=== PATIENT | female | born 1940 | race Caucasian/White ===

== ENCOUNTER 2017-04-02 15:18 | Emergency (ER) | payer OTHER, MEDICAID ==
--- NOTE | 2017-04-02 15:41 | DR.GENAD ---
HPI - PCP Primary Care Physician: NLP - Complaint/Symptoms Chief Complaint Doctors Comments: Hurting in rt. shoulder and nose bleed. She tripped on so,mething while taking out trash at home. She denies LOC. - Nurses notes reviewed Nurses Notes Review: Yes - Source History Provided: Patient - Mode of Arrival Mode of Arrival: EMS - Timing Came on: Suddenly PMH - PMH Past Medical History: Angina, Anxiety, CHF, COPD, Coronary Artery Disease, Diabetes, Dyslipidemia, GERD, Hypertension, [place] Past Surgical History: Yes Surgical History: , Carotid Endarterectomy, Cholecystectomy, Hysterectomy, Neurosurgery, Ortho Surgery - Family History Family Medical History: Cancer, Heart Failure - Social History Do you use any recreational Drugs:: No ROS - Review of Systems Constitutional: No Symptoms Reported Eyes: No Symptoms Reported ENTM: Epistaxis Respiratoy: No Symptoms Reported Cardiovascular: No Symptoms Reported Gastrointestinal/Abdominal: No Symptoms Reported Genitourinary: No Symptoms Reported Neurological: No Symptoms Reported Musculoskeletal: Right, Shoulder, Knee Integumentary: No Symptoms Reported Hematologic/Lymphatic: No Symptoms Reported Endocrine: No Symptoms Reported Psychiatric: No Symptoms Reported PE - Vital Signs Vitals: Temperature 98.1 F Pulse Rate 100 Respiratory Rate 24 Blood Pressure [Left Arm] 147/68 Blood Pressure [Right Arm] 130/59 Blood Pressure 150/67 O2 Sat by Pulse Oximetry 98 - General Limitations: No Limitations General Appearance: Alert, In Distress (pain related) - Head Head Exam: Other (nasal bleed) - Eyes Eye exam: Normal Appearance - ENT External Ear Exam: Normal External Inspection TM/Canal Exam: Bilateral Normal Nose Exam: Other (B/l epistaxis) Mouth Exam: Normal Inspection Throat Exam: Normal Inspection - Neck Neck Exam: Normal Inspection - Chest Chest Inspection: Normal Inspection - Respiratory Respiratory Exam: Normal Lung Sounds Bilat - Cardiovascular Cardiovascular Exam: Regular Rate, Normal Rhythm, +S1, +S2 - Abdominal Exam Abdominal Exam: Normal Inspection, Normal Bowel Sounds, Soft - Extremities Extremities Exam: Normal Inspection, Tenderness (right shoulder) - Back Back Exam: Normal Inspection - Neurologic Neurological Exam: Alert, Oriented X3 - Psychiatric Psychiatric Exam: Normal Affect, Normal Mood - Skin Skin Exam: Warm, Dry, Intact, Normal Color ROR - Labs Reviewed Result Diagrams: 04/02/17 16:15 Laboratory: WBC 17.6 X10^3/uL (3.6-10.0) H 04/02/17 16:15 RBC 4.00 X10^6/uL (3.5-5.4) 04/02/17 16:15 Hgb 12.6 g/dL (12.0-16.0) 04/02/17 16:15 Hct 37.1 % (36.0-47.0) 04/02/17 16:15 MCV 92.8 fL (80.0-100.0) 04/02/17 16:15 MCH 31.5 pg (27.0-34.0) 04/02/17 16:15 MCHC 33.9 g/dL (33.0-35.0) 04/02/17 16:15 RDW 12.8 % (11.6-16.5) 04/02/17 16:15 Plt Count 334 X10^3/uL (150.0-450.0) 04/02/17 16:15 MPV 8.3 fL (7.4-11.0) 04/02/17 16:15 Neut % 75.4 % (42.0-75.0) H 04/02/17 16:15 Lymph % 17.3 % (21.0-51.0) L 04/02/17 16:15 Emmet % 5.2 % (0.0-13.0) 04/02/17 16:15 Eos % 1.4 % (0.9-2.9) 04/02/17 16:15 Baso % 0.7 % (0.2-1.0) 04/02/17 16:15 Neut # 13.3 x10^3/uL (2.2-4.8) H 04/02/17 16:15 Lymph # 3.0 X10^3/uL (1.3-2.9) H 04/02/17 16:15 Emmet # 0.9 x10^3/uL (0.3-0.8) H 04/02/17 16:15 Eos # 0.3 x10^3/uL (0.0-0.2) H 04/02/17 16:15 Baso # 0.1 X10^3/uL (0.0-0.1) 04/02/17 16:15 Absolute Nucleated RBC 0.0 /100WBC 04/02/17 16:15 - XRAY XRAY Interpreted by: Radiologist (CT Brain: chronic atrophy, partially visualised nasal bone fracture. Rt. shoulder: closed, impacted multicomponent fx. Rt. knee: right patella fx. ) - Diagnosis Discharge Problem: Syncope, Humeral head fracture, Nasal bone fracture, Patella fracture, Scalp hematoma - Discharge Plan Disposition: 01 HOME, SELF-CARE Condition: Stable - Follow ups/Referrals Follow ups/Referrals: [facility],None [Primary Care Provider] - 3 days KAMILAH FARMER [STAFF PHYSICIAN] - 3 days - Instructions
[2017-04-02 15:44] VITALS: BMI 32.4
[2017-04-02] MEDS ORDERED: TORADOL 30 MG VIAL IM ONE (15:45)
[2017-04-02] MEDS ORDERED: TORADOL 30 MG VIAL ONE (15:46)
[2017-04-02 16:25] LABS: BASOPHILS # (AUTO) 0.1 X10^3/uL (0.0-0.1); BASOPHILS % (AUTO) 0.7 % (0.2-1.0); EOSINOPHILS # (AUTO) 0.3 x10^3/uL (0.0-0.2); EOSINOPHILS % (AUTO) 1.4 % (0.9-2.9); HEMATOCRIT 37.1 % (36.0-47.0); HEMOGLOBIN 12.6 g/dL (12.0-16.0); LYMPHOCYTES % (AUTO) 17.3 % (21.0-51.0); MEAN CORPUSCULAR HEMOGLOBIN 31.5 pg (27.0-34.0); MEAN CORPUSCULAR HGB CONC 33.9 g/dL (33.0-35.0); MEAN CORPUSCULAR VOLUME 92.8 fL (80.0-100.0); MEAN PLATELET VOLUME 8.3 fL (7.4-11.0); MONOCYTES # (AUTO) 0.9 x10^3/uL (0.3-0.8); MONOCYTES % (AUTO) 5.2 % (0.0-13.0); NEUTROPHILS # (AUTO) 13.3 x10^3/uL (2.2-4.8); NEUTROPHILS % (AUTO) 75.4 % (42.0-75.0); PLATELET COUNT 334 X10^3/uL (150.0-450.0); RED CELL DISTRIBUTION WIDTH 12.8 % (11.6-16.5); WHITE BLOOD COUNT 17.6 X10^3/uL (3.6-10.0)
[2017-04-02] MEDS ORDERED: DILAUDID INJ ONE ×2 (16:28→19:41)
[2017-04-02] MEDS ORDERED: DILAUDID INJ IVP ONE ×2 (16:35→19:40)
--- NOTE | 2017-04-02 16:35 | CT ---
HISTORY: Fall, facial injury Study: CT brain without contrast Comparison: 04/26/2015 Technique: Multiple axial images of the brain were obtained from the skull base to the vertex without administra tion of IV contrast. Dose reduction techniques including Automated Exposure Control (AEC) and adjust ment of mA and kV were utilized. Findings: There is chronic advanced atrophy and nonspecific white matter hypoattenuation likely related to micr ovascular ischemic changes. There are focal hypodensities in the right caudate and left subinsular re gion suggesting old infarctions No evidence of acute hemorrhage, midline shift, mass effect or abnorm al extra-axial fluid collection. There is prominence of the ventricles and cortical sulci commensura te with volume loss. There are partially visualized nasal bone fractures and hemorrhage seen within the right ethmoid air cells and right maxillary sinus; see separately dictated facial bone CT. There is a frontal scalp hematoma. The calvarium is intact. IMPRESSION: 1. Frontal scalp hematoma. 2. Partially visualized nasal bone fractures with hemosinus, see separately dictated facial bone CT. 3. Chronic atrophy and microvascular ischemic changes. Reported By:
--- NOTE | 2017-04-02 16:46 | RAD ---
Examination: Right knee, two views History: Fell Findings: There is a transverse fracture involving the lower 3rd of the patella without significant d istraction or displacement of fragments. There is associated soft tissue swelling. No other fracture is seen. There is marked osteopenia and degenerative narrowing of lateral and medial compartments wit h suspect chondrocalcinosis. Impression: Right patellar fracture. Osteoarthritis and suspect chondrocalcinosis. Reported By:
--- NOTE | 2017-04-02 16:49 | RAD ---
HISTORY: Fall with right shoulder injury Study: Two-view right shoulder Comparison: Chest x-ray done 02/15/2015. Left shoulder x-ray done 11/11/2011. Findings: There is a closed, impacted, multicomponent fracture of the surgical neck of the right humerus with e xtension into the humeral head regions medially and laterally on these AP views, the humeral head layne ears to still be present within the bony glenoid region. There is angulation present, convex medially . Scapula, right clavicle and visualized right ribs appear intact. IMPRESSION: Closed, impacted, multicomponent fracture of the surgical neck of the right humerus with extension in to the right humeral head regions medially and laterally. Reported By:
[2017-04-02] MEDS ORDERED: HYDROGEN PEROXIDE 3% ONE (17:37)
--- NOTE | 2017-04-02 18:19 | CT ---
HISTORY: Fall with right shoulder injury. Study: CT right shoulder without contrast Comparison: Right shoulder series dated same day. Technique: Multiple axial images of the right shoulder without administration of IV contrast. Sagitt al and coronal reformats were performed and reviewed. Dose reduction techniques including Automated E xposure Control (AEC) and adjustment of mA and kV were utilized. Findings: Comminuted multipart and displaced right humeral head fracture. Portions of the fracture fragments a re seen anterior to the bony glenoid. Large joint effusion. Remaining osseous structures appear intac t. The visualized lung is clear. IMPRESSION: Right humeral head fracture as above. Reported By:
--- NOTE | 2017-04-02 18:54 | CT ---
HISTORY: Fall, facial injury, pain Study: CT facial bones Comparison: Head CT same day Technique: Multiple axial images of the facial structures were obtained. Dose reduction techniques i ncluding Automated Exposure Control (AEC) and adjustment of mA and kV were utilized. Findings: The exam is limited due to motion artifact. There are bilateral nasal bone fractures present. There i s deviation of the nasal septum and therefore fracture cannot be completely excluded here. There is s oft tissue swelling present. There is hemorrhage within the right ethmoid and maxillary sinus. The or bits and globes appear intact. Seen best on sagittal image 35 there is a nondisplaced type 2 odontoid fracture. IMPRESSION: 1. There is a nondisplaced type 2 odontoid fracture (seen best on sagittal image 35). 2. Bilateral nasal bone fractures with hemorrhage in the right ethmoid and right maxillary sinuses. 3. Cannot exclude a bony nasal septum fracture; exam is limited due to motion artifact. Reported By:
[2017-04-02] MEDS ORDERED: ZOFRAN INJ 4 MG VIAL IVP ONE (19:40)
[2017-04-02] MEDS ORDERED: CATAPRES TAB 0.1 MG PO ONE (19:40)
[2017-04-02] MEDS ORDERED: CATAPRES TAB 0.1 MG ONE (19:40)
[2017-04-02] MEDS ORDERED: ZOFRAN INJ 4 MG VIAL ONE ×2 (19:44→20:17)
[2017-04-02] MEDS ORDERED: MORPHINE SULFATE INJ 2 MG INJ IVP ONE (20:31)
[2017-04-02] MEDS ORDERED: LOPRESSOR INJ 5 MG AMP IVP ONE (20:32)
[2017-04-02] MEDS ORDERED: LOPRESSOR INJ 5 MG AMP ONE (20:33)
[2017-04-02] MEDS ORDERED: MORPHINE SULFATE INJ 2 MG INJ ONE (20:34)
[2017-04-02 20:40] VITALS: BP 188/79
[2017-04-02 20:59] LABS: BILIRUBIN,URINE NEGATIVE (NEGATIVE); BLOOD/HEMOGLOBIN,URINE 1+ (NEGATIVE); GLUCOSE, URINE 4+ (NEGATIVE); KETONES,URINE 1+ (NEGATIVE); LEUKOCYTE ESTERASE ,URINE NEGATIVE (NEGATIVE); NITRITES,URINE NEGATIVE (NEGATIVE); PH,URINE 6.5 (5.0 - 8.0); PROTEIN,URINE 3+ (NEGATIVE); UROBILINOGEN,URINE NORMAL (NORMAL)
[2017-04-02 21:05] LABS: APPEARANCE,URINE HAZY (CLEAR); BACTERIA,URINE NEGATIVE /HPF (NEGATIVE); COLOR,URINE YELLOW (YELLOW); RBC,URINE 0-2 /HPF (NEGATIVE); SQUAMOUS EPITHELIAL CELL,UR NEGATIVE /HPF (NEGATIVE)
== END 2017-04-02 20:48 | disposition home or self-care (01) ==
LOC: ER 15:29
DX: S42.201A Unspecified fracture of upper end of right humerus, initial encounter for closed fracture (principal); S02.2XXA Fracture of nasal bones, initial encounter for closed fracture; S82.001A Unspecified fracture of right patella, initial encounter for closed fracture; S00.03XA Contusion of scalp, initial encounter; R55 Syncope and collapse; W18.49XA Other slipping, tripping and stumbling without falling, initial encounter; Y92.009 Unspecified place in unspecified non-institutional (private) residence as the place of occurrence of the external cause
CPT/HCPCS: 36415; 51702; 70450; 70486; 73030; 73200; 73560; 81001; 85025; 96365; 96367; 96374; 96375; 99282; 99285; A4222; J1885; J2270; J2405; J3490

== ENCOUNTER → 2017-04-21 | Outpatient (CLI) | payer OTHER, MEDICAID ==
[2017-04-02 20:40] VITALS: BP 188/79
--- NOTE | 2017-04-22 08:16 | RAD ---
HISTORY: Follow-up fall 3 weeks prior. Study: AP and lateral cervical spine Comparison: None Findings: The lateral view demonstrates normal curvature. One-2 mm of retrolisthesis of C4 on C5 is noted. Mo derately severe osteopenia is present. Mild disc space narrowing is noted throughout. There is exag geration of thoracic kyphosis. Moderate to moderately severe facet arthropathy is noted at multiple levels. Moderately severe uncovertebral joint arthropathy is noted at C4/C5, C5/C6 and C6/C7. [facility] on that degrades image quality. Patient has had previous thyroid surgery. Patient is status post median sternotomy. IMPRESSION: 1. Cervical spondylosis as described above. 2. The fracture seen through the odontoid process on the prior examinations cannot be identified on this examination. Follow-up with CT scan of the cervical spine is recommended. Reported By:
== END ==
LOC: RAD 16:11
PROVIDERS: ATTEND Neurological Surgery
DX: S12.112A Nondisplaced Type II dens fracture, initial encounter for closed fracture (principal); X58.XXXA Exposure to other specified factors, initial encounter; M47.892 Other spondylosis, cervical region
CPT/HCPCS: 72040

== ENCOUNTER → 2017-06-03 | Outpatient (CLI) | payer OTHER, MEDICAID ==
--- NOTE | 2017-06-04 08:00 | RAD ---
HISTORY: Cervical spine fracture Study: AP and lateral cervical spine Comparison: 04/21/2017, CT of the facial bones 04/02/2017 Findings: The lateral view demonstrates loss of normal cervical lordosis. Moderately severe osteopenia is pres ent. Partial fusion of C3-C4 is noted. Mild anterior spurring is present multiple levels. The prev ertebral soft tissues are normal. Moderate disc space narrowing is noted at C2/C3. The pre odontoid space is normal. The odontoid fracture seen on the prior CT of the facial bones cannot be identifie d. The posterior elements are intact. The lateral masses of C1 are symmetric about the lateral mass es C2 with mild asymmetry with respect to the odontoid process. Moderate facet arthropathy and uncov ertebral joint arthropathy is noted at multiple levels. Prior thyroid surgery as been performed. IMPRESSION: 1. Cervical spondylosis as described above. 2. Loss of normal cervical lordosis which may be seen in normal individuals, be positional or second maria l to muscle spasm. 3. The odontoid fracture seen on the CT of the facial bones from 04/02/2017 cannot be identified. Fo llow-up CT scan of the cervical spine may be of assistance to assess for healing. Reported By:
== END ==
LOC: RAD 16:16
PROVIDERS: ATTEND Neurological Surgery
DX: S12.112A Nondisplaced Type II dens fracture, initial encounter for closed fracture (principal); X58.XXXA Exposure to other specified factors, initial encounter
CPT/HCPCS: 72040

== ENCOUNTER → 2017-06-17 | Outpatient (CLI) | payer OTHER, MEDICAID ==
--- NOTE | 2017-06-17 14:56 | RAD ---
HISTORY: Follow-up cervical spine fracture. Study: 6 views of the cervical spine. Comparison: CT face dated April 02, 2017 and multiple cervical spine series dating back to April. Findings: Previously described nondisplaced type 2 odontoid fracture is not well appreciated on this exam. No o bvious new acute fracture or listhesis. Diffuse osteopenia. Multilevel moderate to severe degenerativ e changes of the cervical spine. Multiple surgical clips overlying the neck. The prevertebral soft ti ssues are otherwise unremarkable. The lung apices are clear. IMPRESSION: Previously described nondisplaced type 2 odontoid fracture from comparison CT is not appr eciated on this exam. Again, recommend CT cervical spine for better characterization. Reported By:
== END ==
LOC: RAD 14:09
PROVIDERS: ATTEND Neurological Surgery
DX: S12.100S Unspecified displaced fracture of second cervical vertebra, sequela (principal); X58.XXXS Exposure to other specified factors, sequela
CPT/HCPCS: 72050

== ENCOUNTER 2017-06-18 14:23 | Emergency (ER) | payer OTHER, MEDICAID ==
[2017-06-18 14:26] VITALS: BP 184/74; BMI 24.6
--- NOTE | 2017-06-18 14:45 | DR.EXTPAIN ---
HPI - Time seen Time seen: 14:40 - PCP Primary Care Physician: CHIP - Complaint/Symptoms Chief Complaint Doctor Comments: History as stated, I agree with statement. Chief Complaint:: PT. FELL WHILE OUTSIDE IN HER YARD. PT. C/O RIGHT SIDED PAIN FROM HER ARM DOWN TO HER RIGHT LEG. PT. IS ALREADY IN A RIGHT SHOULDER SLING AND A NECK BRACE FROM PREVIOUS FALL. - Source History Provided: Patient, Family Member - Mode of arrival Mode of Arrival: Wheelchair - Timing Onset of Chief Complaint: 06/18/17 PMH - PMH Past Medical History: Yes Past Medical History: Angina, Anxiety, CHF, COPD, Coronary Artery Disease, Diabetes, Dyslipidemia, GERD, Hypertension, [place] Past Surgical History: Yes Surgical History: , Carotid Endarterectomy, Cholecystectomy, Hysterectomy, Neurosurgery, Ortho Surgery - Family History History of Family Medical Conditions: Yes Family Medical History: Cancer, Heart Failure - Social History Does patient currently use any type of tobacco product: No Have you used tobacco products in the last 12 months: No Type of Tobacco Use: None Does any household member use tobacco: No Alcohol Use: None Do you use any recreational Drugs:: No Lives With: Family Lives Where: Home - infectious screening In the last 2 months have you had wt loss of >10#?: NO Have you had fever, night sweats or hemotysis?: No Have you traveled outside the country in the last 6 months?: No Isolation: Standard ROS - Review of Systems Constitutional: No Symptoms Reported Eyes: No Symptoms Reported ENTM: No Symptoms Reported Respiratoy: No Symptoms Reported Cardiovascular: No Symptoms Reported Gastrointestinal/Abdominal: No Symptoms Reported Genitourinary: No Symptoms Reported Neurological: No Symptoms Reported Musculoskeletal: Shoulder (right shoulder pain) Integumentary: No Symptoms Reported Hematologic/Lymphatic: No Symptoms Reported Endocrine: No Symptoms Reported Psychiatric: No Symptoms Reported All Other Systems: Reviewed and Negative PE - Vital Signs Vitals: Temperature 98.6 F Pulse Rate 78 Respiratory Rate 17 Blood Pressure [Left Arm] 147/68 Blood Pressure [Right Arm] 189/79 Blood Pressure 184/74 O2 Sat by Pulse Oximetry 95 - General Limitations: No Limitations General Appearance: Alert - Head Head Exam: Normal Inspection, Atraumatic - Eyes Eye exam: Normal Appearance, PERRL, EOMI - ENT ENT Exam: Normal Exam - Neck Neck Exam: Normal Inspection, Full ROM - Chest Chest Inspection: Normal Inspection - Respiratory Respiratory Exam: Normal Lung Sounds Bilat Respiratory Exam: Bilateral Clear to Auscultation - Cardiovascular Cardiovascular Exam: Regular Rate, Normal Rhythm - Abdominal Exam Abdominal Exam: Normal Inspection, Normal Bowel Sounds Abdominal Tenderness: negative: RUQ, RLQ, LUQ, LLQ, Epigastrium, Suprapubic, Diffuse, Mild, Moderate, Severe, Other - Extremities Extremities Exam: Tenderness (right elbow) - Upper Extremities Shoulder Exam: Tenderness (right shoulder) Arm Exam: Normal Inspection Elbow Exam: Tenderness (tenderness right) Forearm Exam: Normal Inspection Hand Exam: Normal Inspection Neuromotor Exam: Normal Exam Neurosensory Exam: Normal Exam Hand Tendon Exam: Flexor Digitorium Profundus (Location) Upper Ext. Vascular Exam: Capillary Refill - Lower Extremities Hip/Pelvis Exam: Normal Inspection Upper Leg Exam: Normal Inspection Knee Exam: Normal Inspection Lower Leg Exam: Normal Inspection Ankle Exam: Normal Inspection Foot/Toe Exam: Normal Inspection Neurovascular/Tendon Exam: Normal Capillary Refill - Back Back Exam: Normal Inspection - Neurological Neurological Exam: Alert, Oriented X3, CN II-XII Intact ROR - XRAY XRAY Interpreted by: Radiologist (Right elbow:No acute abnormality is identified in the right elbow,Right shoulder: The bonew are diffusely osteopenic. There is an acute fracture of the humeral neck with probable fracture extension into the humeral head demonstrating impaction and medial displacement. There are mild degenerative changes of the AC joint. Impression: Acute fracture of the humeral neck and head. Right knee: There is severe narrowing of the medial and lateral joint space compartments with severe osteophyte formation. There is no joint effusion. No acute fracture is demonstrated. Impression: Severe osteoarthritis of the medial and lateral joint space compartments. No definite acute disease.) - Diagnosis Discharge Problem: Acute Fx of Rt humeral neck and head, Rt Knee severe osteoarthritis - Discharge Plan Condition: Stable - Follow ups/Referrals Follow ups/Referrals: Ezekiel Ford [Primary Care Provider] - 3 days - Instructions
[2017-06-18] MEDS ORDERED: DEMEROL INJ IM ONE (14:47)
[2017-06-18] MEDS ORDERED: DEMEROL INJ ONE (14:54)
--- NOTE | 2017-06-18 15:27 | RAD ---
Right shoulder, three views Indication: Shoulder pain after fall Findings: The bones are diffusely osteopenic. There is an acute fracture of the humeral neck with pro bable fracture extension into the humeral head demonstrating impaction and medial displacement. There are mild degenerative changes of the AC joint. Impression: Acute fracture of the humeral neck and head. Reported By:
--- NOTE | 2017-06-18 15:28 | RAD ---
Exam: Right elbow two views History: 76-year-old female with right elbow pain as result of a fall earlier today. Comparison: None Findings: Two views of the right elbow demonstrate no definite evidence of acute bony abnormality or elbow join t effusion. Impression: No acute abnormality is identified in the right elbow. Reported By:
--- NOTE | 2017-06-18 15:29 | RAD ---
History: Right knee pain after fall Study: Three views right knee including AP oblique and lateral projections Comparison: April 02, 2017 Findings : There is severe narrowing of the medial and lateral joint space compartments with severe o steophyte formation. There is no joint effusion. No acute fracture is demonstrated. Impression: Severe osteoarthritis of the medial and lateral joint space compartments. No definite acu te disease. Reported By:
[2017-06-18] MEDS ORDERED: ZOFRAN TAB 4 MG PO ONE (15:30)
== END 2017-06-18 16:38 | disposition home or self-care (01) ==
LOC: ER 14:34
DX: S42.212A Unspecified displaced fracture of surgical neck of left humerus, initial encounter for closed fracture (principal); M17.11 Unilateral primary osteoarthritis, right knee; W19.XXXA Unspecified fall, initial encounter; Y92.096 Garden or yard of other non-institutional residence as the place of occurrence of the external cause
CPT/HCPCS: 73030; 73070; 73560; 96372; 99282; 99283; S0181; J2175

== ENCOUNTER 2019-06-03 20:01 | Inpatient (IN) ==
--- NOTE | 2019-06-03 20:38 | DR.AMS ---
HPI Time Seen Time Seen by Provider: 06/03/19 20:13 PCP Primary Care Physician: arianna HPI Comment HPI Comment: PATIENT IS 78YR OLD WHITE FEMALE IN ER VIA EMS FOR AMS AND LEFT FACIAL DROOPING. HER SYMPTOMS STARTED 2 DAYS AGO AND WORSE TODAY. PATIENT ALSO HAVE DYSARTHRIA. HISTORY HYPERTENSION AND DIABETIS. NO FEVER. SHE ALSO HAVE GENERALIZED WEAKNESS AND IS EATING POORLY. SHE IS ON PLAVIX AND ASA. Complaint Cheif Complaint Doctors Comments: AMS TIMES 2 DAYS. Chief Complaint:: EMS OUT TO AMS AND FACIAL DROOPING. SX STARTED ON THURSDAY NIGHT PT HAS SOME FACIAL DROOPING ON LT SIDE PT'S TONGUE DEVIATES TO THE LEFT COVID-19 Coronavirus risk:travel/contact w/high risk person: No Has patient experienced Coronavirus symptoms: No Reviewed Nurses Notes Reviewed: Yes Source History Provided: EMS Mode of Arrival Mode of Arrival: EMS Timing Onset of Chief Complaint: 06/01/19 Came On: Suddenly Symptoms: Worsening Duration Duration: Constant Duration: Days Quality Quality: Decreased Alertness, Change in Behavior and Confusion Severity Severity: Moderate Context Recent: None History Of: Diabetes Associated Signs and Symptoms Associated Signs and Symptoms: Change in Behavior, Confusion, Decreased LOC and Change in Memory PMH PMH Past Medical History: Yes Past Medical History: Angina, Anxiety, CHF, COPD, Coronary Artery Disease, Diabetes, Dyslipidemia, GERD, Hypertension and TX Past Surgical History: Yes Surgical History: , Carotid Endarterectomy, Cholecystectomy, Hysterectomy, Neurosurgery and Ortho Surgery Family History History of Family Medical Conditions: Yes Family Medical History: Cancer and Heart Failure Social History Does any household member use tobacco: No Alcohol Use: None Do you use any recreational Drugs:: No Lives With: Family Lives Where: Home Travel Risk Coronavirus risk:travel/contact w/high risk person: No Has patient experienced Coronavirus symptoms: No Infectious screening In the last 2 months have you had wt loss of >10#?: NO Have you had fever, night sweats or hemotysis?: No Have you traveled outside the country in the last 6 months?: No Isolation: Standard ROS Review of Systems Constitutional: No Symptoms Reported, See HPI and Weakness; negative Fever and Fatigue Eyes: See HPI and Other (LEFT EYE WEAK.) ENTM: No Symptoms Reported and See HPI; negative Ear Pain, Nose Discharge, Nose Congestion and Throat Pain Respiratoy: No Symptoms Reported and See HPI; negative Moist Cough, Short of Breath and Wheezing Cardiovascular: No Symptoms Reported and See HPI; negative Chest Pain, Edema and Palpitations Gastrointestinal/Abdominal: No Symptoms Reported and See HPI; negative Diarrhea, Nausea and Vomiting Genitourinary: No Symptoms Reported and See HPI Neurological: See HPI, Weakness and Other (AMS, LEFT FACIAL DROOLING.) Musculoskeletal: No Symptoms Reported and See HPI Integumentary: No Symptoms Reported and See HPI Hematologic/Lymphatic: No Symptoms Reported and See HPI Endocrine: No Symptoms Reported and See HPI; negative Increased Thirst and Increased Urine Psychiatric: No Symptoms Reported and See HPI All Other Systems: Reviewed and Negative Unable to Obtain Due To: Altered mental status PE Vitals Vital Signs: Temp Pulse Resp BP BP BP Pulse Ox 06/03/19 22:30 87 18 159/70 99 06/03/19 22:15 88 95 06/03/19 22:00 85 99 06/03/19 21:45 83 98 06/03/19 21:30 86 97 06/03/19 21:15 87 97 06/03/19 21:00 89 98 06/03/19 20:46 95 H 18 149/83 98 06/03/19 20:45 92 H 98 06/03/19 20:39 96 H 96 06/03/19 20:17 87 96 06/03/19 20:09 86 183/79 98 06/03/19 20:07 93 H 18 216/85 97 06/03/19 20:03 97.9 F 90 20 183/79 98 06/18/17 14:23 184/74 04/02/17 19:50 189/79 03/12/15 20:00 147/68 General Limitations: Altered Mental Status General Appearance: Alert and In No Apparent Distress Head Head Exam: Normal Inspection and Atraumatic Head Exam Physical: Other (NONE SEEN.) Eyes Eye exam: Other (LEFT EYE WEAKNESS.); negative Scleral Icterus and Conjunctival Injection Pupils: Regular, Round: Bilateral and Reactive: Bilateral ENT ENT Exam: Normal Exam, Normal Oropharynx, Normal External Ear Exam and TM's Normal Bilaterally External Ear Exam: Normal External Inspection; negative Mastoid Tenderness TM/Canal Exam: Bilateral: Normal Nose Exam: Normal Nose Exam; negative Sinus Tenderness, Nasal Deviation and Septal Hematoma Mouth Exam: Normal Inspection Throat Exam: Normal Inspection; negative Tonsillar Erythema, Tonsillomegaly and Tonsillar Exudate Neck Neck Exam: Normal Inspection and Trachea Midline; negative Tenderness and Lymphadenopathy Chest Chest Inspection: Normal Inspection and Symmetric Chest Wall Rise; negative Tenderness Respiratory Respiratory Exam: Normal Lung Sounds Bilat; negative Accessory Muscle Use, Chest Wall Tenderness and Respiratory Distress Respiratory Exam: Bilateral: Rhonchi and Lower: Rhonchi Cardiovascular Cardiovascular Exam: Regular Rate, Normal Rhythm and Normal Heart Sounds; negative Systolic Murmur and Diastolic Murmur Abdominal Exam Abdominal Exam: Normal Inspection and Soft; negative Tenderness Back Back Exam: negative (R) CVA Tenderness and (L) CVA Tenderness Neurological Neurological Exam: Alert and Other (COMPREHENDS) Speech: Other Cranial Nerve Exam: EOM Function (II, III, IV, ): Left Abnormal, Facial Palsy (VII): Left Abnormal, Gag reflex (XI): Normal and Left Abnormal and Spinal Accessory Function (XI): Left Abnormal Motor Strength - LUE: 5/5 Motor Strength - RUE: 5/5 Motor Strength - LLE: 5/5 Motor Strength - RLE: 5/5 Psychological Psychiatric Exam: Flat Affect Skin Skin Exam: Warm, Dry, Intact and Normal Color MDM Additional Information Obtained Additional Information Obtained From: Family Differential Diagnosis Metabolic: Dehydration, DKA, Hypercalcemia, Hypernatremia, Hypoglycemia, Hyponatremia and Hypoxemia Structural: CVA and Mass Lesion Infectious: UTI COURSE Treatment Treatment: SEE ORDERS. Consultation Consultation Comments: DISCUSSED PATIENT WITH DR. SKELTON. HE WILL ADMIT PATIENT. Education/Counseling Education/Counseling: Patient Educated On: Diagnosis ROR Labs Reviewed Laboratory Results Reviewed?: Yes Result Diagrams: 06/03/19 20:37 06/03/19 20:37 Laboratory: WBC 12.9 X10^3/uL (3.6-10.0) H 06/03/19 20:37 RBC 5.01 X10^6/uL (3.5-5.4) 06/03/19 20:37 Hgb 15.9 g/dL (12.0-16.0) 06/03/19 20:37 Hct 46.3 % (36.0-47.0) 06/03/19 20:37 MCV 92.5 fL (80.0-100.0) 06/03/19 20:37 MCH 31.7 pg (27.0-34.0) 06/03/19 20:37 MCHC 34.3 g/dL (33.0-35.0) 06/03/19 20:37 RDW 12.8 % (11.6-16.5) 06/03/19 20:37 Plt Count 332 X10^3/uL (150.0-450.0) 06/03/19 20:37 MPV 8.5 fL (7.4-11.0) 06/03/19 20:37 Neut % (Auto) 82.0 % (42.0-75.0) H 06/03/19 20:37 Lymph % (Auto) 13.2 % (21.0-51.0) L 06/03/19 20:37 [place] % (Auto) 3.3 % (0.0-13.0) 06/03/19 20:37 Eos % (Auto) 0.4 % (0.9-2.9) L 06/03/19 20:37 Baso % (Auto) 1.1 % (0.2-1.0) H 06/03/19 20:37 Neut # (Auto) 10.6 x10^3/uL (2.2-4.8) H 06/03/19 20:37 Lymph # (Auto) 1.7 X10^3/uL (1.3-2.9) 06/03/19 20:37 [place] # (Auto) 0.4 x10^3/uL (0.3-0.8) 06/03/19 20:37 Eos # (Auto) 0.0 x10^3/uL (0.0-0.2) 06/03/19 20:37 Baso # (Auto) 0.1 X10^3/uL (0.0-0.1) 06/03/19 20:37 Absolute Nucleated RBC 0.0 /100WBC 06/03/19 20: PT 12.9 SECONDS (11.8-14.3) 06/03/19 20:37 INR Target Range - 06/03/19 20:37 INR 1.00 (0.8-1.3) 06/03/19 20:37 APTT 24.1 SECONDS (22.9-36.5) 06/03/19 20:37 PTT Comment - 06/03/19 20: Fibrinogen 537 mg/dL (239-489) H 06/03/19 20:37 Sodium 141 mmol/L (136-145) 06/03/19 20:37 Corrected Sodium 144 mmol/L (136-145) 06/03/19 20:37 Potassium 4.6 mmol/L (3.5-5.1) 06/03/19 20:37 Chloride 103 mmol/L (98-107) 06/03/19 20:37 Carbon Dioxide 26.0 mmol/L (21-32) 06/03/19 20:37 BUN 24 mg/dL (7-18) H 06/03/19 20:37 Creatinine 1.37 mg/dL (0.55-1.02) H 06/03/19 20:37 Est GFR (MDRD) Af Amer 48 (>60) L 06/03/19 20:37 Est GFR (MDRD) Non-Af 40 (>60) L 06/03/19 20:37 Glucose 223 mg/dL (65-99) H 06/03/19 20:37 Calcium 9.4 mg/dL (8.5-10.1) 06/03/19 20:37 Corrected Calcium TNP 06/03/19 20:37 Total Bilirubin 0.40 mg/dL (0.2-1.0) 06/03/19 20:37 AST 26 Units/L (15-37) 06/03/19 20:37 ALT 12 Units/L (12-78) 06/03/19 20:37 Alkaline Phosphatase 123 Units/L (46-116) H 06/03/19 20:37 Creatine Kinase 39 Units/L (26-192) 06/03/19 20:37 CK-MB (CK-2) < 1.0 ng/mL (0-4.0) 06/03/19 20:37 CK/CKMB % Calc 2.6 % (<4) 06/03/19 20:37 Troponin I < 0.02 ng/mL (0-1.5) 06/03/19 20:37 Total Protein 8.2 g/dL (6.4-8.2) 06/03/19 20:37 Albumin 3.4 g/dL (3.4-5.0) 06/03/19 20:37 Globulin 4.8 g/dL (2.5-4.5) H 06/03/19 20:37 Albumin/Globulin Ratio 0.7 Ratio (1.1-2.1) L 06/03/19 20:37 XRAY XRAY Interpreted by: Radiologist (REPORTS NOTED AND DISCUSSED WITH PATIENT.) and Self EKG Rate: 93 [place]: Normal Rhythm: NSR Block: 1 Hypertrophy: LVH ST: Nonsp Opioid Opioid Risk Tool Age (Mahesh box if 16-45): No History of Preadolescent Sexual Abuse: No Total: 0 Total Score Risk Category: Low Risk Copyright: Usman HERNANDEZ predicting aberrant behaviors Diagnosis Discharge Problem: White matter periventricular infarction, Dysarthria AMS (altered mental status) Qualifiers: Altered mental status type: transient alteration of awareness Qualified Code(s): R40.4 - Transient alteration of awareness COPD (chronic obstructive pulmonary disease) Qualifiers: COPD type: unspecified COPD Qualified Code(s): J44.9 - Chronic obstructive pulmonary disease, unspecified UTI (urinary tract infection) Qualifiers: Urinary tract infection type: site unspecified Instructions Forms: Excuse From Work Precautions for COVID19 Patient Portal Social Distancing
--- NOTE | 2019-06-03 20:46 | RAD ---
HISTORYams facial droopingSTUDYCHEST, 1 VIEWCOMPARISONNoneFINDINGSThe heart is normal. The pulmonary vessels are normal. There are postop changes along the mediastinum and sternum. The lungs are mildly hyperinflated and emphysematous. There are mild linear density scattered along the lung bases. No consolidation or effusion is seen.IMPRESSIONStatus post CABG surgery.Mild chronic obstructive lung changes with mild discoid atelectasis or scarring along the lung bases.Electronically signed by: WILD FORTE (Jun 03, 2019 20:45:15)
[2019-06-03 20:49] LABS: BASOPHILS # (AUTO) 0.1 X10^3/uL (0.0-0.1); BASOPHILS % (AUTO) 1.1 % (0.2-1.0); EOSINOPHILS % (AUTO) 0.4 % (0.9-2.9); HEMATOCRIT 46.3 % (36.0-47.0); HEMOGLOBIN 15.9 g/dL (12.0-16.0); LYMPHOCYTES # (AUTO) 1.7 X10^3/uL (1.3-2.9); LYMPHOCYTES % (AUTO) 13.2 % (21.0-51.0); MEAN CORPUSCULAR HEMOGLOBIN 31.7 pg (27.0-34.0); MEAN CORPUSCULAR HGB CONC 34.3 g/dL (33.0-35.0); MEAN CORPUSCULAR VOLUME 92.5 fL (80.0-100.0); MEAN PLATELET VOLUME 8.5 fL (7.4-11.0); MONOCYTES # (AUTO) 0.4 x10^3/uL (0.3-0.8); MONOCYTES % (AUTO) 3.3 % (0.0-13.0); NEUTROPHILS # (AUTO) 10.6 x10^3/uL (2.2-4.8); PLATELET COUNT 332 X10^3/uL (150.0-450.0); RED BLOOD COUNT 5.01 X10^6/uL (3.5-5.4); RED CELL DISTRIBUTION WIDTH 12.8 % (11.6-16.5); WHITE BLOOD COUNT 12.9 X10^3/uL (3.6-10.0)
--- NOTE | 2019-06-03 20:51 | CT ---
HISTORY: Mental status changes and facial droopingStudy: CT brain without contrastComparison: 04/02/2017Technique:Multiple axial images of the brain were obtained from the skull base to the vertex without administration of IV contrast. Automated dose control was utilized.Findings:The ventricles are mildly enlarged with diffuse mild prominence of the cortical sulci. There is moderate periventricular low density bilaterally. There is a focal low density area of edema along the cooper radiata anteriorly on the left extending inferiorly into the left basal ganglia measuring approximately 3 x 1.6 cm. This is causing mild mass effect with mild compression of the lateral ventricle laterally and mild slight shift of the midline from left to right of approximately 2-3 mm. This was not seen previously. No intracranial hemorrhage is seen. There is no extra-axial fluid collection or mass. The midline structures unremarkable. The bones are intact.IMPRESSION:Findings suspicious for a subacute deep white matter infarct along the left cooper radiata extending into the left basal ganglia causing mild mass effect with minimal shift of the midline from left to right. No intracranial hemorrhage is seen. Recommend clinical follow-up and MRI correlation if indicated.Diffuse mild atrophy and moderate chronic microischemic disease throughout the deep white matter which is unchanged.Electronically signed by: WILD FORTE (Jun 03, 2019 20:50:35)
[2019-06-03 21:06] LABS: BLOOD UREA NITROGEN 24 mg/dL (7-18); CALCIUM 9.4 mg/dL (8.5-10.1); CHLORIDE 103 mmol/L (98-107); COR NA(FOR HYPERGLY) 144 mmol/L (136-145); CREATININE 1.37 mg/dL (0.55-1.02); SODIUM 141 mmol/L (136-145); TROPONIN I < 0.02 ng/mL (0-1.5); eGFR NON BLACK RACES 40 (>60)
[2019-06-03 21:11] LABS: ALANINE AMINOTRANSFERASE 12 Units/L (12-78); ALBUMIN 3.4 g/dL (3.4-5.0); ALKALINE PHOSPHATASE 123 Units/L (46-116); ASPARTATE AMINO TRANSFERASE 26 Units/L (15-37); CKMB % 2.6 % (<4); CREATINE KINASE 39 Units/L (26-192); CREATINE KINASE MB < 1.0 ng/mL (0-4.0); TOTAL PROTEIN 8.2 g/dL (6.4-8.2)
[2019-06-03] MEDS ORDERED: GLUCOPHAGE PO PRN (23:18)
[2019-06-04] MEDS ORDERED: PROVENTIL NEB TX 0.083% 2.5MG/ 3ML NEB SCH
[2019-06-04 00:58] LABS: BILIRUBIN,URINE NEGATIVE (NEGATIVE); BLOOD/HEMOGLOBIN,URINE 2+ (NEGATIVE); GLUCOSE, URINE 4+ (NEGATIVE); KETONES,URINE 3+ (NEGATIVE); LEUKOCYTE ESTERASE ,URINE NEGATIVE (NEGATIVE); NITRITES,URINE NEGATIVE (NEGATIVE); PROTEIN,URINE 4+ (NEGATIVE); UROBILINOGEN,URINE NORMAL (NORMAL)
[2019-06-04 00:59] LABS: APPEARANCE,URINE HAZY (CLEAR); COLOR,URINE YELLOW (YELLOW)
[2019-06-04 01:11] LABS: RBC,URINE 0-2 /HPF (0-3)
[2019-06-04] MEDS ORDERED: TYLENOL 325 MG TAB PO ONE (01:11)
[2019-06-04 01:12] LABS: BACTERIA,URINE NEGATIVE /HPF (NEGATIVE); MUCUS,URINE FEW /HPF (NEGATIVE); SQUAMOUS EPITHELIAL CELL,UR NEGATIVE /HPF (NEGATIVE)
[2019-06-04] MEDS ORDERED: TYLENOL 325 MG TAB PO PRN (01:20)
[2019-06-04] MEDS: FLAVOXATE 100 MG PO SCH ×3 (05:22→22:39)
[2019-06-04 06:20] LABS: BASOPHILS # (AUTO) 0.1 X10^3/uL (0.0-0.1); BASOPHILS % (AUTO) 0.7 % (0.2-1.0); EOSINOPHILS # (AUTO) 0.1 x10^3/uL (0.0-0.2); EOSINOPHILS % (AUTO) 0.8 % (0.9-2.9); HEMATOCRIT 40.2 % (36.0-47.0); HEMOGLOBIN 14.1 g/dL (12.0-16.0); LYMPHOCYTES # (AUTO) 2.1 X10^3/uL (1.3-2.9); LYMPHOCYTES % (AUTO) 19.6 % (21.0-51.0); MEAN CORPUSCULAR HEMOGLOBIN 32.4 pg (27.0-34.0); MEAN CORPUSCULAR VOLUME 92.4 fL (80.0-100.0); MEAN PLATELET VOLUME 8.8 fL (7.4-11.0); MONOCYTES # (AUTO) 0.9 x10^3/uL (0.3-0.8); NEUTROPHILS # (AUTO) 7.6 x10^3/uL (2.2-4.8); NEUTROPHILS % (AUTO) 70.9 % (42.0-75.0); PLATELET COUNT 306 X10^3/uL (150.0-450.0); RED BLOOD COUNT 4.35 X10^6/uL (3.5-5.4); RED CELL DISTRIBUTION WIDTH 12.4 % (11.6-16.5); WHITE BLOOD COUNT 10.7 X10^3/uL (3.6-10.0)
[2019-06-04 06:57] LABS: ALANINE AMINOTRANSFERASE 18 Units/L (12-78); ALBUMIN 2.9 g/dL (3.4-5.0); ALKALINE PHOSPHATASE 103 Units/L (46-116); ASPARTATE AMINO TRANSFERASE 23 Units/L (15-37); BLOOD UREA NITROGEN 22 mg/dL (7-18); CALCIUM 8.8 mg/dL (8.5-10.1); CARBON DIOXIDE 24.7 mmol/L (21-32); CHLORIDE 106 mmol/L (98-107); CKMB % 2.2 % (<4); COR CA(FOR HYPOALB) 9.7 mg/dL (8.5-10.1); COR NA(FOR HYPERGLY) 142 mmol/L (136-145); CREATINE KINASE 54 Units/L (26-192); CREATINE KINASE MB 1.2 ng/mL (0-4.0); CREATININE 1.11 mg/dL (0.55-1.02); MAGNESIUM 2.1 mg/dL (1.7-2.9); SODIUM 140 mmol/L (136-145); TOTAL PROTEIN 7.1 g/dL (6.4-8.2); TROPONIN I < 0.02 ng/mL (0-1.5); eGFR NON BLACK RACES 51 (>60)
[2019-06-04 08:00] VITALS: BMI 25.5
[2019-06-04] MEDS ORDERED: ACTOS PO SCH (09:00)
[2019-06-04] MEDS ORDERED: PATIENT'S HOME MEDICATION (Dexlansoprazole [Dexilant] 60 MG) PO SCH (09:00)
[2019-06-04] MEDS ORDERED: PATIENT'S HOME MEDICATION (Budesonide-Formoterol 2 PUFF) IN SCH (09:00)
[2019-06-04] MEDS: PULMICORT NEB TX 0.5 MG NEB SCH ×3 (09:14→20:05)
[2019-06-04] MEDS: ASPIRIN EC 81 MG PO SCH (10:35)
[2019-06-04] MEDS ORDERED: ACTOS PO ONE (10:35)
[2019-06-04] MEDS: PLAVIX PO SCH (10:36)
[2019-06-04] MEDS: SINEMET (PLAIN) 25/100 MG PO SCH ×2 (10:37→21:00)
--- NOTE | 2019-06-04 12:55 | DR.H&P ---
H&P - History & Physical for Day of: H&P Date: 06/03/19 - Chief Complaint Chief Complaint: AMS, FACIAL DROOP, SLURRED SPEECH - History of Present Illness History of Present Illness: PATIENT IS 78YR OLD WHITE FEMALE, ER ADMISSION AFTER ARRIVING VIA EMS FOR AMS AND LEFT FACIAL DROOPING. HER SYMPTOMS STARTED 2 DAYS AGO AND WORSE TODAY. PATIENT ALSO HAVE DYSARTHRIA. HISTORY HYPERTENSION, CAD AND DIABETIS. NO FEVER. SHE ALSO HAVE GENERALIZED WEAKNESS AND IS EATING POORLY. SHE IS ON PLAVIX AND ASA. PT HAD CT BRAIN IN ER CONFIRMING ACUTE CVA. - Past Medical History Past Medical History: Angina, [place], Coronary Artery Disease, Hypertension, Dyslipidemia, Diabetes, Anxiety, COPD, GERD, CHF Additional Medical History: Cataracts, Cardiac Arrhythmia, IBS, Hx Bladder Cancer 1999 - Past Surgical History Surgical History: , CABG/Valve Surgery, Carotid Endarterectomy, Cholecystectomy, Hysterectomy, Neurosurgery, Ortho Surgery - Family History Family Medical History: Cancer, Heart Failure - Social History Does patient currently use any type of tobacco product: No Have you used tobacco products in the last 12 months: No Type of Tobacco Use: None Does any household member use tobacco: No Alcohol Use: None Drug Use: None - Medications Home Medications: doxycycline Allergy (Intermediate, Verified 06/18/17 14:27) erythromycin base Allergy (Intermediate, Verified 06/18/17 14:27) tramadol Allergy (Intermediate, Verified 06/18/17 14:27) trimethobenzamide [From Tigan] Allergy (Intermediate, Verified 06/18/17 14:27) amoxicillin Allergy (Verified 06/18/17 14:27) cefuroxime [From Ceftin] Allergy (Verified 06/18/17 14:27) clavulanic acid Allergy (Verified 06/18/17 14:27) loratadine [From Claritin] Allergy (Verified 06/18/17 14:27) Penicillins Allergy (Verified 06/18/17 14:27) promethazine Allergy (Verified 06/18/17 14:27) CONTINUE taking the following medications alprazolam [Xanax] 0.25 mg PO QHS PRN 06/03/19 [History] aspirin [Aspir-81] 81 mg PO DAILY 06/03/19 [History] atorvastatin [Lipitor] 20 mg PO QHS 06/03/19 [History] budesonide-formoterol [Symbicort] 2 puff INHALATION BID 06/03/19 [History] carbidopa-levodopa [Sinemet] 1 tab PO BID 06/03/19 [History] ciprofloxacin HCl [Cipro] 500 mg PO BID 06/03/19 [History] clopidogrel [Plavix] 75 mg PO DAILY 06/03/19 [History] dexlansoprazole [Dexilant] 60 mg PO DAILY 06/03/19 [History] flavoxate 100 mg PO TID 06/03/19 [History] metformin 500 mg PO BID PRN 06/03/19 [History] nifedipine [Procardia XL] 30 mg PO DAILY PRN 06/03/19 [History] ondansetron HCl [Zofran] 8 mg PO Q12H 06/03/19 [History] oxycodone-acetaminophen [Percocet] 1 tab PO Q6H PRN 06/03/19 [History] pioglitazone [Actos] 30 mg PO DAILY 06/03/19 [History] ranitidine HCl [Zantac] 300 mg PO QHS 06/03/19 [History] - Review of Systems Constitutional: Weakness Eyes: No Symptoms Reported ENT: No Symptoms Reported Respiratory: denies: Shortness of Breath Cardiovascular: denies: Chest Pain Gastrointestinal: No Symptoms Reported Genitourinary: No Symptoms Reported Musculoskeletal: No Symptoms Reported Skin: No Symptoms Reported Neurological: Weakness, Change in Speech - Physical Exam Vital Signs: Temperature 98.2 F Pulse Rate [Left Radial] 82 Pulse Rate 78 Respiratory Rate 16 Blood Pressure [Left Arm] 147/68 Blood Pressure [Right Arm] 169/70 Blood Pressure 159/70 O2 Sat by Pulse Oximetry 97 Oriented: Normal Eyes: Normal Ear: Normal Nose: Normal Throat: Dry Respiratory: RLL Diminished, LLL Diminished Cardiovascular: Normal. negative: Edema : Normal Auscultation: Bowel Sounds: Normal Palpation: Normal Tenderness: Normal Skin: Decreased [place] Musculoskeletal: Normal (NO WEAKNESS OBSERVED ON EXAM) Mood Description: Calm Speech Pattern: Delayed (MINIMAL RESPONES) - Assessment/Plan (1) Acute CVA (cerebrovascular accident) Status: Acute Plan: ADMIT, NPO UNTIL SPEECH EVALUATION. IV HYDRATION, CONTINUE ASA PLAVIX. BS CONTROL, STRICT I&O. CXR ON ADMISSION, CARDIAC MONITORING. PT CONSULT (2) AMS (altered mental status) Qualifiers: Altered mental status type: transient alteration of awareness Qualified Code(s): R40.4 - Transient alteration of awareness Status: Acute (3) COPD (chronic obstructive pulmonary disease) Qualifiers: COPD type: unspecified COPD Qualified Code(s): J44.9 - Chronic obstructive pulmonary disease, unspecified Status: Acute (4) CHF (congestive heart failure) Status: Chronic (5) Hx of CABG Status: Chronic (6) Hyperlipidemia Status: Chronic (7) Hypertension Qualifiers: Hypertension type: essential hypertension Qualified Code(s): I10 - Essential (primary) hypertension Status: Chronic - Allergies Allergies/Adverse Reactions: Allergies Allergy/AdvReac Type Severity Reaction Status Date / Time doxycycline Allergy Intermediate Verified 06/18/17 14:27 erythromycin base Allergy Intermediate Verified 06/18/17 14:27 tramadol Allergy Intermediate Verified 06/18/17 14:27 trimethobenzamide Allergy Intermediate Verified 06/18/17 14:27 [From Tigan] amoxicillin Allergy Verified 06/18/17 14:27 cefuroxime [From Ceftin] Allergy Verified 06/18/17 14:27 clavulanic acid Allergy Verified 06/18/17 14:27 loratadine [From Claritin] Allergy Verified 06/18/17 14:27 Penicillins Allergy Verified 06/18/17 14:27 promethazine Allergy Verified 06/18/17 14:27
[2019-06-04] MEDS ORDERED: PERCOCET TAB 5/325 MG PO PRN (12:56)
[2019-06-04] MEDS ORDERED: HumuLIN R SUBCUT PRN (12:57)
[2019-06-04] MEDS: NS 1000 ML 1,000 ML IV SCH ×2 (13:23)
[2019-06-04] MEDS: MORPHINE SULFATE INJ 2 MG INJ IVP PRN (13:39)
[2019-06-04] MEDS: NYSTATIN POWDER TOP SCH ×2 (14:50→22:37)
[2019-06-04] MEDS: SNACK - Diabetic Appropriate PO SCH (20:00)
[2019-06-04] MEDS: LEVAQUIN PREMIX IV 250 MG 250 MG/50 ML BAG IV SCH ×2 (21:00)
[2019-06-04] MEDS: XANAX PO SCH (21:00)
[2019-06-04] MEDS: LIPITOR TAB 20 MG PO SCH ×2 (21:00)
[2019-06-05] MEDS: NS 1000 ML 1,000 ML IV SCH ×3 (03:45→19:41)
[2019-06-05] MEDS: FLAVOXATE 100 MG PO SCH ×3 (06:05→22:01)
[2019-06-05 06:25] LABS: ALANINE AMINOTRANSFERASE 7 Units/L (12-78); ALBUMIN 2.8 g/dL (3.4-5.0); ALKALINE PHOSPHATASE 97 Units/L (46-116); ASPARTATE AMINO TRANSFERASE 16 Units/L (15-37); BLOOD UREA NITROGEN 13 mg/dL (7-18); CALCIUM 8.5 mg/dL (8.5-10.1); CARBON DIOXIDE 26.6 mmol/L (21-32); CHLORIDE 107 mmol/L (98-107); COR CA(FOR HYPOALB) 9.5 mg/dL (8.5-10.1); COR NA(FOR HYPERGLY) 142 mmol/L (136-145); CREATININE 0.85 mg/dL (0.55-1.02); SODIUM 141 mmol/L (136-145); TOTAL PROTEIN 6.3 g/dL (6.4-8.2); eGFR NON BLACK RACES > 60 (>60)
[2019-06-05 06:46] LABS: BASOPHILS # (AUTO) 0.1 X10^3/uL (0.0-0.1); BASOPHILS % (AUTO) 0.8 % (0.2-1.0); EOSINOPHILS # (AUTO) 0.2 x10^3/uL (0.0-0.2); EOSINOPHILS % (AUTO) 2.2 % (0.9-2.9); HEMATOCRIT 38.5 % (36.0-47.0); HEMOGLOBIN 12.9 g/dL (12.0-16.0); LYMPHOCYTES # (AUTO) 2.3 X10^3/uL (1.3-2.9); LYMPHOCYTES % (AUTO) 29.1 % (21.0-51.0); MEAN CORPUSCULAR HEMOGLOBIN 31.4 pg (27.0-34.0); MEAN CORPUSCULAR HGB CONC 33.6 g/dL (33.0-35.0); MEAN CORPUSCULAR VOLUME 93.3 fL (80.0-100.0); MEAN PLATELET VOLUME 8.9 fL (7.4-11.0); MONOCYTES # (AUTO) 0.6 x10^3/uL (0.3-0.8); MONOCYTES % (AUTO) 7.7 % (0.0-13.0); NEUTROPHILS # (AUTO) 4.8 x10^3/uL (2.2-4.8); NEUTROPHILS % (AUTO) 60.2 % (42.0-75.0); PLATELET COUNT 250 X10^3/uL (150.0-450.0); RED BLOOD COUNT 4.12 X10^6/uL (3.5-5.4); RED CELL DISTRIBUTION WIDTH 12.7 % (11.6-16.5); WHITE BLOOD COUNT 7.9 X10^3/uL (3.6-10.0)
[2019-06-05] MEDS: PULMICORT NEB TX 0.5 MG NEB SCH ×2 (08:40→20:45)
[2019-06-05] MEDS: PLAVIX PO SCH (09:58)
[2019-06-05] MEDS: ASPIRIN EC 81 MG PO SCH (09:58)
[2019-06-05] MEDS: SINEMET (PLAIN) 25/100 MG PO SCH ×2 (09:59→21:00)
[2019-06-05] MEDS: NYSTATIN POWDER TOP SCH ×2 (09:59→21:57)
[2019-06-05] MEDS ORDERED: PROTONIX INJ 40 MG VIAL IVP SCH (10:00)
[2019-06-05] MEDS: HumuLIN R SC PRN ×2 (17:54→21:00)
[2019-06-05] MEDS: SNACK - Diabetic Appropriate PO SCH (20:00)
[2019-06-05] MEDS: XANAX PO SCH (21:00)
[2019-06-05] MEDS: LIPITOR TAB 20 MG PO SCH (21:57)
[2019-06-05] MEDS: LEVAQUIN PREMIX IV 250 MG 250 MG/50 ML BAG IV SCH (21:57)
[2019-06-06] MEDS: NS 1000 ML 1,000 ML IV SCH ×3 (06:02→17:58)
[2019-06-06] MEDS: FLAVOXATE 100 MG PO SCH ×3 (06:02→21:16)
[2019-06-06 06:34] LABS: BASOPHILS # (AUTO) 0.1 X10^3/uL (0.0-0.1); BASOPHILS % (AUTO) 0.7 % (0.2-1.0); EOSINOPHILS # (AUTO) 0.2 x10^3/uL (0.0-0.2); EOSINOPHILS % (AUTO) 1.9 % (0.9-2.9); LYMPHOCYTES # (AUTO) 1.7 X10^3/uL (1.3-2.9); LYMPHOCYTES % (AUTO) 14.6 % (21.0-51.0); MEAN CORPUSCULAR HEMOGLOBIN 31.4 pg (27.0-34.0); MEAN CORPUSCULAR HGB CONC 34.2 g/dL (33.0-35.0); MEAN PLATELET VOLUME 8.5 fL (7.4-11.0); MONOCYTES # (AUTO) 0.8 x10^3/uL (0.3-0.8); MONOCYTES % (AUTO) 6.4 % (0.0-13.0); NEUTROPHILS # (AUTO) 9.1 x10^3/uL (2.2-4.8); NEUTROPHILS % (AUTO) 76.4 % (42.0-75.0); PLATELET COUNT 257 X10^3/uL (150.0-450.0); RED BLOOD COUNT 4.14 X10^6/uL (3.5-5.4); RED CELL DISTRIBUTION WIDTH 12.4 % (11.6-16.5); WHITE BLOOD COUNT 11.9 X10^3/uL (3.6-10.0)
[2019-06-06 06:58] LABS: ALANINE AMINOTRANSFERASE 6 Units/L (12-78); ALBUMIN 2.4 g/dL (3.4-5.0); ALKALINE PHOSPHATASE 86 Units/L (46-116); ASPARTATE AMINO TRANSFERASE 18 Units/L (15-37); BLOOD UREA NITROGEN 10 mg/dL (7-18); CALCIUM 8.4 mg/dL (8.5-10.1); CARBON DIOXIDE 22.7 mmol/L (21-32); CHLORIDE 106 mmol/L (98-107); COR CA(FOR HYPOALB) 9.7 mg/dL (8.5-10.1); COR NA(FOR HYPERGLY) 140 mmol/L (136-145); CREATININE 0.79 mg/dL (0.55-1.02); SODIUM 139 mmol/L (136-145); TOTAL PROTEIN 6.3 g/dL (6.4-8.2); eGFR NON BLACK RACES > 60 (>60)
[2019-06-06] MEDS: PULMICORT NEB TX 0.5 MG NEB SCH ×2 (09:15→20:16)
[2019-06-06] MEDS: PLAVIX PO SCH (10:10)
[2019-06-06] MEDS: ASPIRIN EC 81 MG PO SCH (10:11)
[2019-06-06] MEDS: PATIENT'S HOME MEDICATION PO SCH (10:11)
[2019-06-06] MEDS: SINEMET (PLAIN) 25/100 MG PO SCH ×2 (10:11→21:15)
--- NOTE | 2019-06-06 10:28 | VAS ---
HISTORYCVASTUDYCAROTID USTechnique: Multiple grayscale sonographic images were obtained. Color duplex Doppler evaluation was performed.COMPARISONNoneFINDINGSOn the right, significant plaque is not identified. Peak systolic velocity in the internal carotid artery 92.6 cm/second. ICA/CCA ratio 1.17. A hemodynamically significant stenosis is not present. Flow in the right vertebral artery was antegrade. On the left, no significant plaque was identified. Peak systolic velocity internal carotid artery 108.4 cm/second. ICA/CCA ratio 1.16. Hemodynamically significant stenosis does not appear to be present. Flow in the left vertebral artery was antegrade.IMPRESSIONNo evidence for hemodynamically significant stenosis on either sideElectronically signed by: CARIDAD TORRES (Jun 06, 2019 10:26:59)
[2019-06-06] MEDS: MAGNESIUM SULFATE 1 GRAM/100 mL PREMIX 1 GM/100 ML BAG IV PRN ×2 (12:13→13:30)
[2019-06-06] MEDS: HumuLIN R SC PRN ×3 (12:13→21:17)
[2019-06-06] MEDS: NYSTATIN POWDER TOP SCH ×2 (13:30→21:15)
[2019-06-06] MEDS ORDERED: MICRO K EXTEN CAP 10 MEQ PO PRN (13:31)
[2019-06-06] MEDS ORDERED: POTASSIUM CHL 60 MEQ/NS 0.45% 500 ML IV PRN (13:31)
[2019-06-06] MEDS ORDERED: POTASSIUM CHLORIDE LIQ 20 MEQ UDC PO PRN (13:31)
[2019-06-06] MEDS ORDERED: K-RIDER 10 MEQ/NS 100 ML 10 MEQ/100 ML BAG IV PRN (13:31)
[2019-06-06] MEDS ORDERED: KLOR-CON PO PRN (13:31)
[2019-06-06] MEDS ORDERED: POTASSIUM CHL 40 MEQ/NS 0.45% 500 ML IV PRN (13:31)
[2019-06-06] MEDS ORDERED: K-DUR TAB 20 MEQ PO PRN (13:31)
--- NOTE | 2019-06-06 14:55 | MRI ---
HISTORYCVASTUDYBRAIN W/O CONCOMPARISONCT June 03, [id number] multi-sequence MRI of the brain was obtained utilizing standard departmental protocol. Sagittal and axial T1 weighted images were obtained. Axial T2 and flair weighted images were performed as well. Axial diffusion weighted and ADC trace mapping was performed.FINDINGSThe midline structures appear unremarkable. The evaluation of the brain parenchyma demonstrates no abnormal signal characteristics to suggest intraparenchymal mass or hemorrhage. No extra-axial fluid collections are observed. The ventricular system appears symmetric and nondilated. The CP angle is normal in its appearance without brainstem mass or evidence for acoustic neuroma. The flow voids on both T1 and T2 weighted imaging appear unremarkable. Evaluation of the diffusion weighted imaging does demonstrate an area of restricted diffusion in the left cooper radiata and basal ganglia compatible the subacute infarct is noted on previous CT. There is also a punctate focus of restricted diffusion in the right cooper radiata as well compatible with a small subacute infarct. Small vessel ischemic changes noted throughout the periventricular white matter. Small effusions are noted bilaterally.IMPRESSIONSubacute infarct in the left cooper radiata left left visual angle E a as above and a small punctate focus of restricted ischemia in the right cooper radiata compatible with a subacute stroke as well.Electronically signed by: CARL BAINS (Jun 06, 2019 14:53:46)
[2019-06-06] MEDS: LEVAQUIN PREMIX IV 250 MG 250 MG/50 ML BAG IV SCH (21:14)
[2019-06-06] MEDS: LIPITOR TAB 20 MG PO SCH (21:14)
[2019-06-06] MEDS: XANAX PO SCH (21:15)
[2019-06-06] MEDS: SNACK - Diabetic Appropriate PO SCH (21:16)
[2019-06-07] MEDS: NS 1000 ML 1,000 ML IV SCH (05:20)
[2019-06-07 06:37] LABS: BASOPHILS # (AUTO) 0.1 X10^3/uL (0.0-0.1); BASOPHILS % (AUTO) 0.7 % (0.2-1.0); EOSINOPHILS # (AUTO) 0.2 x10^3/uL (0.0-0.2); HEMATOCRIT 36.5 % (36.0-47.0); HEMOGLOBIN 12.5 g/dL (12.0-16.0); LYMPHOCYTES # (AUTO) 2.3 X10^3/uL (1.3-2.9); LYMPHOCYTES % (AUTO) 23.6 % (21.0-51.0); MEAN CORPUSCULAR HEMOGLOBIN 31.6 pg (27.0-34.0); MEAN CORPUSCULAR HGB CONC 34.3 g/dL (33.0-35.0); MEAN CORPUSCULAR VOLUME 92.1 fL (80.0-100.0); MEAN PLATELET VOLUME 8.5 fL (7.4-11.0); MONOCYTES # (AUTO) 0.7 x10^3/uL (0.3-0.8); MONOCYTES % (AUTO) 6.9 % (0.0-13.0); NEUTROPHILS # (AUTO) 6.5 x10^3/uL (2.2-4.8); NEUTROPHILS % (AUTO) 66.8 % (42.0-75.0); PLATELET COUNT 239 X10^3/uL (150.0-450.0); RED BLOOD COUNT 3.96 X10^6/uL (3.5-5.4); RED CELL DISTRIBUTION WIDTH 12.4 % (11.6-16.5); WHITE BLOOD COUNT 9.7 X10^3/uL (3.6-10.0)
[2019-06-07] MEDS: FLAVOXATE 100 MG PO SCH ×3 (06:45→21:24)
[2019-06-07 07:05] LABS: ALANINE AMINOTRANSFERASE 10 Units/L (12-78); ALBUMIN 2.2 g/dL (3.4-5.0); ALKALINE PHOSPHATASE 82 Units/L (46-116); ASPARTATE AMINO TRANSFERASE 24 Units/L (15-37); BLOOD UREA NITROGEN 8 mg/dL (7-18); CALCIUM 7.9 mg/dL (8.5-10.1); CARBON DIOXIDE 25.8 mmol/L (21-32); CHLORIDE 108 mmol/L (98-107); COR CA(FOR HYPOALB) 9.3 mg/dL (8.5-10.1); CREATININE 0.78 mg/dL (0.55-1.02); MAGNESIUM 1.9 mg/dL (1.7-2.9); SODIUM 141 mmol/L (136-145); TOTAL PROTEIN 5.9 g/dL (6.4-8.2); eGFR NON BLACK RACES > 60 (>60)
[2019-06-07] MEDS: SINEMET (PLAIN) 25/100 MG PO SCH ×2 (08:49→21:21)
[2019-06-07] MEDS: PLAVIX PO SCH (08:49)
[2019-06-07] MEDS: PATIENT'S HOME MEDICATION PO SCH (08:51)
[2019-06-07] MEDS: ASPIRIN EC 81 MG PO SCH (08:52)
[2019-06-07] MEDS: PULMICORT NEB TX 0.5 MG NEB SCH ×2 (09:29→21:05)
--- NOTE | 2019-06-07 10:20 | PCM.PROG ---
Progress Note - Progress Note for Day of Date of Exam: 06/06/19 - Subjective Subjective: WAS ADMITTED ON 06/02 FOR A SUSPECTED ACUTE CVA, AMS, UTI, AND COPD. TODAY, SHE IS ALERT AND ORIENTED, LYING IN BED ON MORNING ROUNDS. SHE REPORTS WEAKNESS THIS MORNING. ON EXAMINATION, HEART IS REGULAR IN RATE AND RHYTHM. BILATERAL LUNGS ARE NOTED WITH DIMINISHED LUNG SOUNDS THROUGHOUT. ABDOMEN IS ROUND, SOFT, AND NON-TENDER WITH NORMAL BOWEL SOUNDS NOTED IN ALL QUADRANTS. SHE HAS 4/5 POWER TO UPPER EXTREMITIES. STAFF REPORTS THAT SHE REQUIRES ASSISTANCE FOR AMBULATION. HER VITALS THIS MORNING ARE: 98.0-66-18-100%-175/72. LABS WERE OBTAINED. ABNORMAL LAB VALUES INCLUDE THE F OLLOWING: WBC 11.9, GLUCOSE 162, CALCIUM 8.4, ALT 6, TOTAL PROTEIN 6.3, ALBUMIN 2.4. SHE IS CURRENTLY RECEIVING NS AT 50 ML/HR, LEVAQUIN 250MG IV HS, PLAVIX 75MG PO DAILY, ASPIRIN 81MG PO DAILY, LIPITOR 20MG PO HS, THE POTASSIUM AND MAGNESIUM PROTOCOLS, HUMULIN R SLIDING SCALE, AND HOME MEDICATIONS WERE RESUMED. WE WILL OBTAIN AN MRI TODAY. OTHERWISE, WE WILL CONTINUE WITH CURRENT PLAN OF CARE AND HAVE PHYSICAL THERAPY WORK WITH PATIENT TODAY. WE WILL FOLLOW UP WITH AM LABS AND CONTINUE TO MONITOR. - Past Medical Family Social History Past Med/Fam/Surg Hx: No changes since H&P Allergies: Allergies doxycycline Allergy (Intermediate, Verified 06/18/17 14:27) erythromycin base Allergy (Intermediate, Verified 06/18/17 14:27) tramadol Allergy (Intermediate, Verified 06/18/17 14:27) trimethobenzamide [From Tigan] Allergy (Intermediate, Verified 06/18/17 14:27) amoxicillin Allergy (Verified 06/18/17 14:27) cefuroxime [From Ceftin] Allergy (Verified 06/18/17 14:27) clavulanic acid Allergy (Verified 06/18/17 14:27) loratadine [From Claritin] Allergy (Verified 06/18/17 14:27) Penicillins Allergy (Verified 06/18/17 14:27) promethazine Allergy (Verified 06/18/17 14:27) - Review of Systems ROS: No change since H&P - Vital Signs and I&O's Vital Signs: Temperature 98.2 F Pulse Rate [Left Radial] 60 Pulse Rate 74 Respiratory Rate 16 Blood Pressure [Left Arm] 148/64 Blood Pressure [Right Arm] 172/71 Blood Pressure 159/70 O2 Sat by Pulse Oximetry 98 Intake and Output: Intake & Output 06/04/19 06/05/19 06/06/19 06/07/19 11:59 11:59 11:59 11:59 Intake Total 416 / 416 2098 / 2099 2046 1030 / 1030 Output Total 100 / 100 325 / 325 Balance 316 / 316 1774 / 1774 2046 1030 / 1030 - Physical Exam Oriented: Normal Eyes: Normal Ear: Normal Nose: Normal Throat: Normal, Dry Respiratory: Generalized, Diminished Cardiovascular: Normal. negative: Edema : Normal Auscultation: Bowel Sounds: Normal Palpation: Normal Tenderness: Normal Skin: Decreased Turgur Musculoskeletal: Instability (WEAKNESS, UNSTEADY GAIT ) Psychiatric: Normal Mood Description: Calm Affect: Normal Speech Pattern: Appropriate, Unclear, Slurred - Laboratory and Diagnostics Result Diagrams: 06/07/19 06:12 06/07/19 06:12 Labs: Laboratory WBC 9.7 X10^3/uL (3.6-10.0) 06/07/19 06:12 RBC 3.96 X10^6/uL (3.5-5.4) 06/07/19 06:12 Hgb 12.5 g/dL (12.0-16.0) 06/07/19 06:12 Hct 36.5 % (36.0-47.0) 06/07/19 06:12 MCV 92.1 fL (80.0-100.0) 06/07/19 06:12 MCH 31.6 pg (27.0-34.0) 06/07/19 06:12 MCHC 34.3 g/dL (33.0-35.0) 06/07/19 06:12 RDW 12.4 % (11.6-16.5) 06/07/19 06:12 Plt Count 239 X10^3/uL (150.0-450.0) 06/07/19 06:12 MPV 8.5 fL (7.4-11.0) 06/07/19 06:12 Neut % (Auto) 66.8 % (42.0-75.0) 06/07/19 06:12 Lymph % (Auto) 23.6 % (21.0-51.0) 06/07/19 06:12 [place] % (Auto) 6.9 % (0.0-13.0) 06/07/19 06:12 Eos % (Auto) 2.0 % (0.9-2.9) 06/07/19 06:12 Baso % (Auto) 0.7 % (0.2-1.0) 06/07/19 06:12 Neut # (Auto) 6.5 x10^3/uL (2.2-4.8) H 06/07/19 06:12 Lymph # (Auto) 2.3 X10^3/uL (1.3-2.9) 06/07/19 06:12 [place] # (Auto) 0.7 x10^3/uL (0.3-0.8) 06/07/19 06:12 Eos # (Auto) 0.2 x10^3/uL (0.0-0.2) 06/07/19 06:12 Baso # (Auto) 0.1 X10^3/uL (0.0-0.1) 06/07/19 06:12 Absolute Nucleated RBC 0.0 /100WBC 06/07/19 06:12 PT 12.9 SECONDS (11.8-14.3) 06/03/19 20:37 INR Target Range - 06/03/19 20:37 INR 1.00 (0.8-1.3) 06/03/19 20:37 APTT 24.1 SECONDS (22.9-36.5) 06/03/19 20:37 PTT Comment - 06/03/19 20:37 Fibrinogen 537 mg/dL (239-489) H 06/03/19 20:37 Sodium 141 mmol/L (136-145) 06/07/19 06:12 Corrected Sodium TNP 06/07/19 06:12 Potassium 4.1 mmol/L (3.5-5.1) 06/07/19 06:12 Chloride 108 mmol/L (98-107) H 06/07/19 06:12 Carbon Dioxide 25.8 mmol/L (21-32) 06/07/19 06:12 BUN 8 mg/dL (7-18) 06/07/19 06:12 Creatinine 0.78 mg/dL (0.55-1.02) 06/07/19 06:12 Est GFR (MDRD) Af Amer > 60 (>60) 06/07/19 06:12 Est GFR (MDRD) Non-Af > 60 (>60) 06/07/19 06:12 Glucose 102 mg/dL (65-99) H 06/07/19 06:12 POC Glucose (mg/dL) 102 mg/dL (65-99) H 06/07/19 06:04 Calcium 7.9 mg/dL (8.5-10.1) L 06/07/19 06:12 Corrected Calcium 9.3 mg/dL (8.5-10.1) 06/07/19 06:12 Magnesium 1.9 mg/dL (1.7-2.9) 06/07/19 06:12 Total Bilirubin 0.50 mg/dL (0.2-1.0) 06/07/19 06:12 AST 24 Units/L (15-37) 06/07/19 06:12 ALT 10 Units/L (12-78) L 06/07/19 06:12 Alkaline Phosphatase 82 Units/L (46-116) 06/07/19 06:12 Creatine Kinase 54 Units/L (26-192) 06/04/19 05:30 CK-MB (CK-2) 1.2 ng/mL (0-4.0) 06/04/19 05:30 CK/CKMB % Calc 2.2 % (<4) 06/04/19 05:30 Troponin I < 0.02 ng/mL (0-1.5) 06/04/19 05:30 Total Protein 5.9 g/dL (6.4-8.2) L 06/07/19 06:12 Albumin 2.2 g/dL (3.4-5.0) L 06/07/19 06:12 Globulin 3.7 g/dL (2.5-4.5) 06/07/19 06:12 Albumin/Globulin Ratio 0.6 Ratio (1.1-2.1) L 06/07/19 06:12 Specimen Type Catherized urine 06/04/19 00:10 Urine Color Yellow (YELLOW) 06/04/19 00:10 Urine Appearance Hazy (CLEAR) 06/04/19 00:10 Urine pH 5.0 (5.0 - 8.0) 06/04/19 00:10 Ur Specific [place] 1.025 (1.000-1.030) 06/04/19 00:10 Urine Protein 4+ (NEGATIVE) 06/04/19 00:10 Urine Glucose (UA) 4+ (NEGATIVE) 06/04/19 00:10 Urine Ketones 3+ (NEGATIVE) 06/04/19 00:10 Urine Occult Blood 2+ (NEGATIVE) 06/04/19 00:10 Urine Nitrite Negative (NEGATIVE) 06/04/19 00:10 Urine Bilirubin Negative (NEGATIVE) 06/04/19 00:10 Urine Urobilinogen Normal (NORMAL) 06/04/19 00:10 Ur Leukocyte Esterase Negative (NEGATIVE) 06/04/19 00:10 Urine RBC 0-2 /HPF (0-3) 06/04/19 00:10 Urine WBC None seen /HPF (0-5) 06/04/19 00:10 Ur Squamous Epith Cells Negative /HPF (NEGATIVE) 06/04/19 00:10 Urine Bacteria Negative /HPF (NEGATIVE) 06/04/19 00:10 Urine Mucus Few /HPF (NEGATIVE) 06/04/19 00:10 Ur Culture Indicated? No/not indicated 06/04/19 00:10 - Plan (1) Acute CVA (cerebrovascular accident) Status: Acute Plan: OBTAIN BRAIN MRI. IV HYDRATION, CONTINUE ASA, PLAVIX, LIPITOR. BS CONTROL, STRICT I&O. CARDIAC MONITORING. PT CONSULT (2) AMS (altered mental status) Status: Acute Qualifiers: Altered mental status type: transient alteration of awareness Qualified Code(s): R40.4 - Transient alteration of awareness (3) UTI (urinary tract infection) Status: Acute Qualifiers: Urinary tract infection type: site unspecified Plan: LEVAQUIN 250MG IV HS, IV FLUIDS, CONTINUE TO MONITOR (4) COPD (chronic obstructive pulmonary disease) Status: Acute Qualifiers: COPD type: unspecified COPD Qualified Code(s): J44.9 - Chronic obstructive pulmonary disease, unspecified (5) Weakness Status: Acute
[2019-06-07] MEDS: HumuLIN R SC PRN ×2 (17:30→22:04)
--- NOTE | 2019-06-07 18:52 | PCM.PROG ---
Progress Note - Progress Note for Day of Date of Exam: 06/07/19 - Subjective Subjective: IS BEING TREATED FOR AN ACUTE CVA, AMS, UTI, AND COPD. TODAY, SHE IS ALERT AND ORIENTED, LYING IN BED ON MORNING ROUNDS. SHE REPORTS WEAKNESS THIS MORNING. ON EXAMINATION, HEART IS REGULAR IN RATE AND RHYTHM. BILATERAL LUNGS ARE NOTED WITH DIMINISHED LUNG SOUNDS THROUGHOUT. ABDOMEN IS ROUND, SOFT, AND NON-TENDER WITH NORMAL BOWEL SOUNDS NOTED IN ALL QUADRANTS. SHE HAS 4/5 POWER TO UPPER EXTREMITIES. STAFF REPORTS THAT SHE REQUIRES ASSISTANCE FOR AMBULATION. HER VITALS THIS MORNING ARE: 98.3-68-18-98%-152/67. LABS WERE OBTAINED. ABNORMAL LAB VALUES INCLUDE THE FOLLOWING: CHLORIDE 108, GLUCOSE 102, CALCIUM 7.9, ALT 10, TOTAL PROTEIN 5.9, ALBUMIN 2.2. A BRAIN MRI WAS OBTAINED YESTERDAY AND REVEALED: Subacute infarct in the left cooper radiata left left visual angle E a as above and a small punctate focus of restricted ischemia in the right cooper radiata compatible with a subacute stroke as well. CAROTID DOPPLER REVEALED: No evidence for hemodynamically significant stenosis on either side. SHE IS CURRENTLY RECEIVING NS AT 50 ML/HR, LEVAQUIN 250MG IV HS, PLAVIX 75MG PO DAILY, ASPIRIN 81MG PO DAILY, LIPITOR 20MG PO HS, THE POTASSIUM AND MAGNESIUM PROTOCOLS, HUMULIN R SLIDING SCALE, AND HOME MEDICATIONS WERE RESUMED. WE WILL CONTINUE WITH CURRENT PLAN OF CARE TODAY. OTHERWISE, WE WILL FOLLOW UP WITH AM LABS AND CONTINUE TO MONITOR. - Past Medical Family Social History Past Med/Fam/Surg Hx: No changes since H&P Allergies: Allergies doxycycline Allergy (Intermediate, Verified 06/18/17 14:27) erythromycin base Allergy (Intermediate, Verified 06/18/17 14:27) tramadol Allergy (Intermediate, Verified 06/18/17 14:27) trimethobenzamide [From Tigan] Allergy (Intermediate, Verified 06/18/17 14:27) amoxicillin Allergy (Verified 06/18/17 14:27) cefuroxime [From Ceftin] Allergy (Verified 06/18/17 14:27) clavulanic acid Allergy (Verified 06/18/17 14:27) loratadine [From Claritin] Allergy (Verified 06/18/17 14:27) Penicillins Allergy (Verified 06/18/17 14:27) promethazine Allergy (Verified 06/18/17 14:27) - Review of Systems ROS: No change since H&P - Vital Signs and I&O's Vital Signs: Temperature 98.0 F Pulse Rate [Left Radial] 71 Pulse Rate 74 Respiratory Rate 18 Blood Pressure [Left Arm] 149/88 Blood Pressure [Right Arm] 172/71 Blood Pressure 159/70 O2 Sat by Pulse Oximetry 100 Intake and Output: Intake & Output 06/05/19 06/06/19 06/07/19 06/08/19 11:59 11:59 11:59 11:59 Intake Total 2098 / 2098 1030 / 1030 360 / 360 Output Total 325 / 325 Balance 1774 / [id number] 1030 / 1030 360 / 360 - Physical Exam Oriented: Normal Eyes: Normal Ear: Normal Nose: Normal Throat: Normal, Dry Respiratory: Generalized, Diminished Cardiovascular: Normal. negative: Edema : Normal Auscultation: Bowel Sounds: Normal Tenderness: Normal Skin: Decreased Turgur Musculoskeletal: Instability (WEAKNESS, UNSTEADY GAIT ) Psychiatric: Normal Mood Description: Calm Affect: Normal Speech Pattern: Clear, Appropriate - Laboratory and Diagnostics Result Diagrams: 06/07/19 06:12 06/07/19 06:12 Labs: Laboratory WBC 9.7 X10^3/uL (3.6-10.0) 06/07/19 06:12 RBC 3.96 X10^6/uL (3.5-5.4) 06/07/19 06:12 Hgb 12.5 g/dL (12.0-16.0) 06/07/19 06:12 Hct 36.5 % (36.0-47.0) 06/07/19 06:12 MCV 92.1 fL (80.0-100.0) 06/07/19 06:12 MCH 31.6 pg (27.0-34.0) 06/07/19 06:12 MCHC 34.3 g/dL (33.0-35.0) 06/07/19 06:12 RDW 12.4 % (11.6-16.5) 06/07/19 06:12 Plt Count 239 X10^3/uL (150.0-450.0) 06/07/19 06:12 MPV 8.5 fL (7.4-11.0) 06/07/19 06:12 Neut % (Auto) 66.8 % (42.0-75.0) 06/07/19 06:12 Lymph % (Auto) 23.6 % (21.0-51.0) 06/07/19 06:12 [place] % (Auto) 6.9 % (0.0-13.0) 06/07/19 06:12 Eos % (Auto) 2.0 % (0.9-2.9) 06/07/19 06:12 Baso % (Auto) 0.7 % (0.2-1.0) 06/07/19 06:12 Neut # (Auto) 6.5 x10^3/uL (2.2-4.8) H 06/07/19 06:12 Lymph # (Auto) 2.3 X10^3/uL (1.3-2.9) 06/07/19 06:12 [place] # (Auto) 0.7 x10^3/uL (0.3-0.8) 06/07/19 06:12 Eos # (Auto) 0.2 x10^3/uL (0.0-0.2) 06/07/19 06:12 Baso # (Auto) 0.1 X10^3/uL (0.0-0.1) 06/07/19 06:12 Absolute Nucleated RBC 0.0 /100WBC 06/07/19 06:12 PT 12.9 SECONDS (11.8-14.3) 06/03/19 20:37 INR Target Range - 06/03/19 20:37 INR 1.00 (0.8-1.3) 06/03/19 20:37 APTT 24.1 SECONDS (22.9-36.5) 06/03/19 20:37 PTT Comment - 06/03/19 20:37 Fibrinogen 537 mg/dL (239-489) H 06/03/19 20:37 Sodium 141 mmol/L (136-145) 06/07/19 06:12 Corrected Sodium TNP 06/07/19 06:12 Potassium 4.1 mmol/L (3.5-5.1) 06/07/19 06:12 Chloride 108 mmol/L (98-107) H 06/07/19 06:12 Carbon Dioxide 25.8 mmol/L (21-32) 06/07/19 06:12 BUN 8 mg/dL (7-18) 06/07/19 06:12 Creatinine 0.78 mg/dL (0.55-1.02) 06/07/19 06:12 Est GFR (MDRD) Af Amer > 60 (>60) 06/07/19 06:12 Est GFR (MDRD) Non-Af > 60 (>60) 06/07/19 06:12 Glucose 102 mg/dL (65-99) H 06/07/19 06:12 POC Glucose (mg/dL) 222 mg/dL (65-99) H 06/07/19 16:39 Calcium 7.9 mg/dL (8.5-10.1) L 06/07/19 06:12 Corrected Calcium 9.3 mg/dL (8.5-10.1) 06/07/19 06:12 Magnesium 1.9 mg/dL (1.7-2.9) 06/07/19 06:12 Total Bilirubin 0.50 mg/dL (0.2-1.0) 06/07/19 06:12 AST 24 Units/L (15-37) 06/07/19 06:12 ALT 10 Units/L (12-78) L 06/07/19 06:12 Alkaline Phosphatase 82 Units/L (46-116) 06/07/19 06:12 Creatine Kinase 54 Units/L (26-192) 06/04/19 05:30 CK-MB (CK-2) 1.2 ng/mL (0-4.0) 06/04/19 05:30 CK/CKMB % Calc 2.2 % (<4) 06/04/19 05:30 Troponin I < 0.02 ng/mL (0-1.5) 06/04/19 05:30 Total Protein 5.9 g/dL (6.4-8.2) L 06/07/19 06:12 Albumin 2.2 g/dL (3.4-5.0) L 06/07/19 06:12 Globulin 3.7 g/dL (2.5-4.5) 06/07/19 06:12 Albumin/Globulin Ratio 0.6 Ratio (1.1-2.1) L 06/07/19 06:12 Specimen Type Catherized urine 06/04/19 00:10 Urine Color Yellow (YELLOW) 06/04/19 00:10 Urine Appearance Hazy (CLEAR) 06/04/19 00:10 Urine pH 5.0 (5.0 - 8.0) 06/04/19 00:10 Ur Specific [place] 1.025 (1.000-1.030) 06/04/19 00:10 Urine Protein 4+ (NEGATIVE) 06/04/19 00:10 Urine Glucose (UA) 4+ (NEGATIVE) 06/04/19 00:10 Urine Ketones 3+ (NEGATIVE) 06/04/19 00:10 Urine Occult Blood 2+ (NEGATIVE) 06/04/19 00:10 Urine Nitrite Negative (NEGATIVE) 06/04/19 00:10 Urine Bilirubin Negative (NEGATIVE) 06/04/19 00:10 Urine Urobilinogen Normal (NORMAL) 06/04/19 00:10 Ur Leukocyte Esterase Negative (NEGATIVE) 06/04/19 00:10 Urine RBC 0-2 /HPF (0-3) 06/04/19 00:10 Urine WBC None seen /HPF (0-5) 06/04/19 00:10 Ur Squamous Epith Cells Negative /HPF (NEGATIVE) 06/04/19 00:10 Urine Bacteria Negative /HPF (NEGATIVE) 06/04/19 00:10 Urine Mucus Few /HPF (NEGATIVE) 06/04/19 00:10 Ur Culture Indicated? No/not indicated 06/04/19 00:10 - Plan (1) Acute CVA (cerebrovascular accident) Status: Acute Plan: IV HYDRATION, CONTINUE ASA, PLAVIX, LIPITOR. BS CONTROL, STRICT I&O. CARDIAC MONITORING. PHYSICAL THERAPY (2) AMS (altered mental status) Status: Acute Qualifiers: Altered mental status type: transient alteration of awareness Qualified Code(s): R40.4 - Transient alteration of awareness (3) UTI (urinary tract infection) Status: Acute Qualifiers: Urinary tract infection type: site unspecified Plan: LEVAQUIN 250MG IV HS, IV FLUIDS, CONTINUE TO MONITOR (4) COPD (chronic obstructive pulmonary disease) Status: Acute Qualifiers: COPD type: unspecified COPD Qualified Code(s): J44.9 - Chronic obstructive pulmonary disease, unspecified (5) Weakness Status: Acute
[2019-06-07] MEDS: MORPHINE SULFATE INJ 2 MG INJ IVP PRN (19:15)
[2019-06-07] MEDS: PROCARDIA XL PO SCH ×3 (21:21→21:48)
[2019-06-07] MEDS: XANAX PO SCH (21:21)
[2019-06-07] MEDS: LEVAQUIN PREMIX IV 250 MG 250 MG/50 ML BAG IV SCH (21:22)
[2019-06-07] MEDS: LIPITOR TAB 20 MG PO SCH (21:22)
[2019-06-07] MEDS ORDERED: APRESOLINE INJ 20 MG VIAL IVP PRN (21:59)
[2019-06-07] MEDS: SNACK - Diabetic Appropriate PO SCH (22:12)
[2019-06-08] MEDS: NS 1000 ML 1,000 ML IV SCH ×3 (05:09→22:18)
[2019-06-08] MEDS: FLAVOXATE 100 MG PO SCH ×3 (05:30→22:21)
[2019-06-08 06:53] LABS: BASOPHILS # (AUTO) 0.1 X10^3/uL (0.0-0.1); BASOPHILS % (AUTO) 0.7 % (0.2-1.0); EOSINOPHILS # (AUTO) 0.2 x10^3/uL (0.0-0.2); EOSINOPHILS % (AUTO) 1.6 % (0.9-2.9); HEMATOCRIT 37.6 % (36.0-47.0); HEMOGLOBIN 12.8 g/dL (12.0-16.0); LYMPHOCYTES # (AUTO) 1.9 X10^3/uL (1.3-2.9); LYMPHOCYTES % (AUTO) 17.7 % (21.0-51.0); MEAN CORPUSCULAR HEMOGLOBIN 31.7 pg (27.0-34.0); MEAN CORPUSCULAR VOLUME 93.1 fL (80.0-100.0); MEAN PLATELET VOLUME 8.5 fL (7.4-11.0); MONOCYTES # (AUTO) 0.7 x10^3/uL (0.3-0.8); MONOCYTES % (AUTO) 6.7 % (0.0-13.0); NEUTROPHILS # (AUTO) 7.9 x10^3/uL (2.2-4.8); NEUTROPHILS % (AUTO) 73.3 % (42.0-75.0); PLATELET COUNT 227 X10^3/uL (150.0-450.0); RED BLOOD COUNT 4.03 X10^6/uL (3.5-5.4); RED CELL DISTRIBUTION WIDTH 12.7 % (11.6-16.5); WHITE BLOOD COUNT 10.8 X10^3/uL (3.6-10.0)
[2019-06-08 07:10] LABS: ALANINE AMINOTRANSFERASE 7 Units/L (12-78); ALBUMIN 2.2 g/dL (3.4-5.0); ALKALINE PHOSPHATASE 83 Units/L (46-116); ASPARTATE AMINO TRANSFERASE 19 Units/L (15-37); BLOOD UREA NITROGEN 9 mg/dL (7-18); CALCIUM 8.1 mg/dL (8.5-10.1); CARBON DIOXIDE 27.6 mmol/L (21-32); CHLORIDE 107 mmol/L (98-107); COR CA(FOR HYPOALB) 9.5 mg/dL (8.5-10.1); COR NA(FOR HYPERGLY) 140 mmol/L (136-145); CREATININE 0.74 mg/dL (0.55-1.02); SODIUM 140 mmol/L (136-145); TOTAL PROTEIN 6.1 g/dL (6.4-8.2); eGFR NON BLACK RACES > 60 (>60)
[2019-06-08] MEDS: SINEMET (PLAIN) 25/100 MG PO SCH ×2 (09:43→21:00)
[2019-06-08] MEDS: ASPIRIN EC 81 MG PO SCH (09:44)
[2019-06-08] MEDS: PLAVIX PO SCH (09:44)
[2019-06-08] MEDS: PATIENT'S HOME MEDICATION PO SCH (09:44)
[2019-06-08] MEDS: PULMICORT NEB TX 0.5 MG NEB SCH ×2 (09:50→21:33)
[2019-06-08] MEDS ORDERED: CATAPRES-TTS-1 TD SCH (10:00)
[2019-06-08] MEDS: XANAX PO SCH (21:00)
[2019-06-08] MEDS: LIPITOR TAB 20 MG PO SCH (21:00)
[2019-06-08] MEDS: SNACK - Diabetic Appropriate PO SCH (21:00)
[2019-06-08] MEDS: LEVAQUIN PREMIX IV 250 MG 250 MG/50 ML BAG IV SCH (21:00)
[2019-06-09] MEDS: FLAVOXATE 100 MG PO SCH (05:37)
[2019-06-09 06:51] LABS: BASOPHILS % (AUTO) 0.5 % (0.2-1.0); EOSINOPHILS # (AUTO) 0.2 x10^3/uL (0.0-0.2); EOSINOPHILS % (AUTO) 2.4 % (0.9-2.9); HEMATOCRIT 37.1 % (36.0-47.0); HEMOGLOBIN 12.6 g/dL (12.0-16.0); LYMPHOCYTES # (AUTO) 1.6 X10^3/uL (1.3-2.9); LYMPHOCYTES % (AUTO) 18.3 % (21.0-51.0); MEAN CORPUSCULAR HEMOGLOBIN 31.3 pg (27.0-34.0); MEAN CORPUSCULAR HGB CONC 33.9 g/dL (33.0-35.0); MEAN CORPUSCULAR VOLUME 92.3 fL (80.0-100.0); MEAN PLATELET VOLUME 8.4 fL (7.4-11.0); MONOCYTES # (AUTO) 0.6 x10^3/uL (0.3-0.8); NEUTROPHILS # (AUTO) 6.1 x10^3/uL (2.2-4.8); NEUTROPHILS % (AUTO) 71.8 % (42.0-75.0); PLATELET COUNT 231 X10^3/uL (150.0-450.0); RED BLOOD COUNT 4.02 X10^6/uL (3.5-5.4); RED CELL DISTRIBUTION WIDTH 12.6 % (11.6-16.5); WHITE BLOOD COUNT 8.5 X10^3/uL (3.6-10.0)
[2019-06-09 07:16] LABS: ALANINE AMINOTRANSFERASE 9 Units/L (12-78); ALBUMIN 2.3 g/dL (3.4-5.0); ALKALINE PHOSPHATASE 83 Units/L (46-116); ASPARTATE AMINO TRANSFERASE 19 Units/L (15-37); BLOOD UREA NITROGEN 7 mg/dL (7-18); CALCIUM 8.4 mg/dL (8.5-10.1); CARBON DIOXIDE 27.2 mmol/L (21-32); CHLORIDE 105 mmol/L (98-107); COR CA(FOR HYPOALB) 9.8 mg/dL (8.5-10.1); COR NA(FOR HYPERGLY) 140 mmol/L (136-145); CREATININE 0.69 mg/dL (0.55-1.02); SODIUM 139 mmol/L (136-145); TOTAL PROTEIN 6.2 g/dL (6.4-8.2); eGFR NON BLACK RACES > 60 (>60)
[2019-06-09] MEDS: PULMICORT NEB TX 0.5 MG NEB SCH (08:42)
--- NOTE | 2019-06-09 08:58 | PCM.PROG ---
Progress Note - Progress Note for Day of Date of Exam: 06/08/19 - Subjective Subjective: IS BEING TREATED FOR AN ACUTE CVA, AMS, UTI, AND COPD. TODAY, SHE IS ALERT AND ORIENTED, LYING IN BED ON MORNING ROUNDS. SHE REPORTS WEAKNESS THIS MORNING. STAFF REPORTS THAT SHE HAS BEEN HYPERTENSIVE THROUGHOUT THE NIGHT. ON EXAMINATION, HEART IS REGULAR IN RATE AND RHYTHM. BILATERAL LUNGS ARE NOTED WITH DIMINISHED LUNG SOUNDS THROUGHOUT. ABDOMEN IS ROUND, SOFT, AND NON-TENDER WITH NORMAL BOWEL SOUNDS NOTED IN ALL QUADRANTS. STAFF REPORTS THAT SHE REQUIRES ASSISTANCE FOR AMBULATION. HER VITALS THIS MORNING ARE: 97.9-74-18-100%-154/68.LABS WERE OBTAINED. ABNORMAL LAB VALUES INCLUDE THE FOLLOWING: WBC 10.8, GLUCOSE 120, CALCIUM 8.1, ALT 7, TOTAL PROTEIN 6.1, ALBUMIN 2.2. SHE IS CURRENTLY RECEIVING NS AT 50 ML/HR, LEVAQUIN 250MG IV HS, PLAVIX 75MG PO DAILY, ASPIRIN 81MG PO DAILY, LIPITOR 20MG PO HS, THE POTASSIUM AND MAGNESIUM PROTOCOLS, HUMULIN R SLIDING SCALE, AND HOME MEDICATIONS WERE RESUMED. TODAY, WE WILL DISCONTINUE THE PROCARDIA AND START A CATAPRES PATCH 0.1MG TD Q7D. OTHERWISE, WE WILL CONTINUE WITH CURRENT PLAN OF CARE AND PHYSICAL THERAPY TODAY. WE WILL FOLLOW UP WITH AM LABS AND CONTINUE TO MONITOR. - Past Medical Family Social History Past Med/Fam/Surg Hx: No changes since H&P Allergies: Allergies doxycycline Allergy (Intermediate, Verified 06/18/17 14:27) erythromycin base Allergy (Intermediate, Verified 06/18/17 14:27) tramadol Allergy (Intermediate, Verified 06/18/17 14:27) trimethobenzamide [From Tigan] Allergy (Intermediate, Verified 06/18/17 14:27) amoxicillin Allergy (Verified 06/18/17 14:27) cefuroxime [From Ceftin] Allergy (Verified 06/18/17 14:27) clavulanic acid Allergy (Verified 06/18/17 14:27) loratadine [From Claritin] Allergy (Verified 06/18/17 14:27) Penicillins Allergy (Verified 06/18/17 14:27) promethazine Allergy (Verified 06/18/17 14:27) - Review of Systems ROS: No change since H&P - Vital Signs and I&O's Vital Signs: Temperature 98.0 F Pulse Rate [Left Radial] 67 Pulse Rate 67 Respiratory Rate 18 Blood Pressure [Left Arm] 178/74 Blood Pressure [Right Arm] 172/71 Blood Pressure 159/70 O2 Sat by Pulse Oximetry 100 Intake and Output: Intake & Output 06/06/19 06/07/19 06/08/19 06/09/19 11:59 11:59 11:59 11:59 Intake Total 2046 1030 / 1030 1495 / 1495 1275 / 1275 Output Total 0 / 0 Balance 2046 1030 / 1030 1491 / 1491 1275 / 1275 - Physical Exam Oriented: Normal Eyes: Normal Ear: Normal Nose: Normal Throat: Normal, Dry Respiratory: Generalized, Diminished Cardiovascular: Normal. negative: Edema : Normal Auscultation: Bowel Sounds: Normal Palpation: Normal Tenderness: Normal Skin: Decreased Turgur Musculoskeletal: Instability (WEAKNESS, UNSTEADY GAIT ) Psychiatric: Normal Mood Description: Calm Affect: Normal Speech Pattern: Clear, Appropriate - Laboratory and Diagnostics Result Diagrams: 06/09/19 06:00 06/09/19 06:00 Labs: Laboratory WBC 8.5 X10^3/uL (3.6-10.0) 06/09/19 06:00 RBC 4.02 X10^6/uL (3.5-5.4) 06/09/19 06:00 Hgb 12.6 g/dL (12.0-16.0) 06/09/19 06:00 Hct 37.1 % (36.0-47.0) 06/09/19 06:00 MCV 92.3 fL (80.0-100.0) 06/09/19 06:00 MCH 31.3 pg (27.0-34.0) 06/09/19 06:00 MCHC 33.9 g/dL (33.0-35.0) 06/09/19 06:00 RDW 12.6 % (11.6-16.5) 06/09/19 06:00 Plt Count 231 X10^3/uL (150.0-450.0) 06/09/19 06:00 MPV 8.4 fL (7.4-11.0) 06/09/19 06:00 Neut % (Auto) 71.8 % (42.0-75.0) 06/09/19 06:00 Lymph % (Auto) 18.3 % (21.0-51.0) L 06/09/19 06:00 [place] % (Auto) 7.0 % (0.0-13.0) 06/09/19 06:00 Eos % (Auto) 2.4 % (0.9-2.9) 06/09/19 06:00 Baso % (Auto) 0.5 % (0.2-1.0) 06/09/19 06:00 Neut # (Auto) 6.1 x10^3/uL (2.2-4.8) H 06/09/19 06:00 Lymph # (Auto) 1.6 X10^3/uL (1.3-2.9) 06/09/19 06:00 [place] # (Auto) 0.6 x10^3/uL (0.3-0.8) 06/09/19 06:00 Eos # (Auto) 0.2 x10^3/uL (0.0-0.2) 06/09/19 06:00 Baso # (Auto) 0.0 X10^3/uL (0.0-0.1) 06/09/19 06:00 Absolute Nucleated RBC 0.0 /100WBC 06/09/19 06:00 PT 12.9 SECONDS (11.8-14.3) 06/03/19 20:37 INR Target Range - 06/03/19 20:37 INR 1.00 (0.8-1.3) 06/03/19 20:37 APTT 24.1 SECONDS (22.9-36.5) 06/03/19 20:37 PTT Comment - 06/03/19 20:37 Fibrinogen 537 mg/dL (239-489) H 06/03/19 20:37 Sodium 139 mmol/L (136-145) 06/09/19 06:00 Corrected Sodium 140 mmol/L (136-145) 06/09/19 06:00 Potassium 3.5 mmol/L (3.5-5.1) 06/09/19 06:00 Chloride 105 mmol/L (98-107) 06/09/19 06:00 Carbon Dioxide 27.2 mmol/L (21-32) 06/09/19 06:00 BUN 7 mg/dL (7-18) 06/09/19 06:00 Creatinine 0.69 mg/dL (0.55-1.02) 06/09/19 06:00 Est GFR (MDRD) Af Amer > 60 (>60) 06/09/19 06:00 Est GFR (MDRD) Non-Af > 60 (>60) 06/09/19 06:00 Glucose 143 mg/dL (65-99) H 06/09/19 06:00 POC Glucose (mg/dL) 132 mg/dL (65-99) H 06/09/19 05:23 Calcium 8.4 mg/dL (8.5-10.1) L 06/09/19 06:00 Corrected Calcium 9.8 mg/dL (8.5-10.1) 06/09/19 06:00 Magnesium 1.9 mg/dL (1.7-2.9) 06/07/19 06:12 Total Bilirubin 0.50 mg/dL (0.2-1.0) 06/09/19 06:00 AST 19 Units/L (15-37) 06/09/19 06:00 ALT 9 Units/L (12-78) L 06/09/19 06:00 Alkaline Phosphatase 83 Units/L (46-116) 06/09/19 06:00 Creatine Kinase 54 Units/L (26-192) 06/04/19 05:30 CK-MB (CK-2) 1.2 ng/mL (0-4.0) 06/04/19 05:30 CK/CKMB % Calc 2.2 % (<4) 06/04/19 05:30 Troponin I < 0.02 ng/mL (0-1.5) 06/04/19 05:30 Total Protein 6.2 g/dL (6.4-8.2) L 06/09/19 06:00 Albumin 2.3 g/dL (3.4-5.0) L 06/09/19 06:00 Globulin 3.9 g/dL (2.5-4.5) 06/09/19 06:00 Albumin/Globulin Ratio 0.6 Ratio (1.1-2.1) L 06/09/19 06:00 Specimen Type Catherized urine 06/04/19 00:10 Urine Color Yellow (YELLOW) 06/04/19 00:10 Urine Appearance Hazy (CLEAR) 06/04/19 00:10 Urine pH 5.0 (5.0 - 8.0) 06/04/19 00:10 Ur Specific Reform 1.025 (1.000-1.030) 06/04/19 00:10 Urine Protein 4+ (NEGATIVE) 06/04/19 00:10 Urine Glucose (UA) 4+ (NEGATIVE) 06/04/19 00:10 Urine Ketones 3+ (NEGATIVE) 06/04/19 00:10 Urine Occult Blood 2+ (NEGATIVE) 06/04/19 00:10 Urine Nitrite Negative (NEGATIVE) 06/04/19 00:10 Urine Bilirubin Negative (NEGATIVE) 06/04/19 00:10 Urine Urobilinogen Normal (NORMAL) 06/04/19 00:10 Ur Leukocyte Esterase Negative (NEGATIVE) 06/04/19 00:10 Urine RBC 0-2 /HPF (0-3) 06/04/19 00:10 Urine WBC None seen /HPF (0-5) 06/04/19 00:10 Ur Squamous Epith Cells Negative /HPF (NEGATIVE) 06/04/19 00:10 Urine Bacteria Negative /HPF (NEGATIVE) 06/04/19 00:10 Urine Mucus Few /HPF (NEGATIVE) 06/04/19 00:10 Ur Culture Indicated? No/not indicated 06/04/19 00:10 - Plan (1) Acute CVA (cerebrovascular accident) Status: Acute Plan: IV HYDRATION, CONTINUE ASA, PLAVIX, LIPITOR. BS CONTROL, STRICT I&O. CARDIAC MONITORING. PHYSICAL THERAPY (2) AMS (altered mental status) Status: Acute Qualifiers: Altered mental status type: transient alteration of awareness Qualified Code(s): R40.4 - Transient alteration of awareness (3) UTI (urinary tract infection) Status: Acute Qualifiers: Urinary tract infection type: site unspecified Plan: LEVAQUIN 250MG IV HS, IV FLUIDS, CONTINUE TO MONITOR (4) COPD (chronic obstructive pulmonary disease) Status: Acute Qualifiers: COPD type: unspecified COPD Qualified Code(s): J44.9 - Chronic obstructive pulmonary disease, unspecified (5) Weakness Status: Acute (6) Hyperlipidemia Status: Chronic Qualifiers: Hyperlipidemia type: mixed hyperlipidemia Qualified Code(s): E78.2 - Mixed hyperlipidemia Plan: CONTINUE LIPITOR, CONTINUE TO MONITOR (7) Hypertension Status: Chronic Qualifiers: Hypertension type: essential hypertension Qualified Code(s): I10 - Dayo l (primary) hypertension Plan: CATAPRES PATCH 0.1MG TD Q7D, CONTINUE TO MONITOR
[2019-06-09] MEDS: ASPIRIN EC 81 MG PO SCH (09:20)
[2019-06-09] MEDS: PLAVIX PO SCH (09:20)
[2019-06-09] MEDS: SINEMET (PLAIN) 25/100 MG PO SCH (09:20)
[2019-06-09] MEDS: PATIENT'S HOME MEDICATION PO SCH (09:20)
[2019-06-09 09:32] VITALS: BP 185/79
[2019-06-09] MEDS ORDERED: CATAPRES-TTS-2 TD SCH (10:00)
== END 2019-06-09 11:20 | disposition home or self-care (01) | DRG 65 ==
LOC: ER 20:01 → MED/SURG 22:31
PROVIDERS: ADMIT Internal Medicine; ATTEND Internal Medicine
DX: R47.1 Dysarthria and anarthria; R94.31 Abnormal electrocardiogram [ECG] [EKG]; N39.0 Urinary tract infection, site not specified; Z79.01 Long term (current) use of anticoagulants; R40.4 Transient alteration of awareness; I63.89 Other cerebral infarction; E78.2 Mixed hyperlipidemia; R53.1 Weakness; E11.65 Type 2 diabetes mellitus with hyperglycemia; I10 Essential (primary) hypertension; I25.10 Atherosclerotic heart disease of native coronary artery without angina pectoris; J44.9 Chronic obstructive pulmonary disease, unspecified

== ENCOUNTER 2019-06-09 11:20 | Inpatient (IN) ==
[2019-06-09] MEDS ORDERED: APRESOLINE INJ 20 MG VIAL IVP PRN (11:44)
[2019-06-09] MEDS ORDERED: TYLENOL 325 MG TAB PO PRN (11:44)
[2019-06-09 13:45] VITALS: BMI 26.7
--- NOTE | 2019-06-09 14:00 | PT/OTEVAL ---
PT/OT OBJECTIVES - HISTORY Prescription: PT Consult Diagnosis: C/P CVA Precautions: falls PMH: Angina, [place], Coronary Artery Disease, Hypertension, Dyslipidemia, Diabetes, Anxiety, COPD, GERD, CHF & hx of bladder cancer (1999). Prior Level of Function: Independent Other: Prior to hospital admission: Pt. lives with daughter and was independent in all areas of ADLs, functional transfers and ambulation w/o any AD. Pt utilizes bedside commode at home however was also able to go to the bathroom by herself. Pt. uses shower chair & daughter helps some. - COGNITION Mental Status: Alert, Oriented, Name, Place, Purpose Communication Status: Verbal Ability to Follow Directions: 2 Step - BED MOBILITY Rolling: Moderate Scooting: Moderate Bridging: Maximum - TRANSFERS Supine to Sit: Moderate Sit to Stand: Moderate Sit or Stand Pivot: Moderate - BALANCE Static Sitting: Good Standing: Fair Dynamic Sitting: Good Standing: Fair - NEUROMOTOR/SENSATION Emery. Lower Ext Sensation: WFL Coordination: WFL - HAND DOMINANCE Extremity Function: Hand Dominance: Right - ROM Bilateral LE ROM: WFL Muscle Tone: WFL - STRENGTH Bilateral LE Strength Number: 3 Other comment: 3-/5 grossly graded - GAIT Comments: n/a today due to elevated BP PT/OT ASSESSMENT - PT Problem List: Decreased Bed Mobility, Decreased Transfers, Decreased Gait, Decreased Balance, Decreased Safety, Decreased LE Strength - PT GOALS Short Term Goals Days: 10 Mobility: improve bed mobility to supv/touch A to facilitate EOB tasks Transfers: improve sit <->stand w or w/o AD at supv/touch A to set up A w/o LOB noted Gait: improve gait using RW for 150ft at supv/touch A w/o LOB noted Balance: improve standing S/D to F+/F+ ROM/Strength: increase B LE ms strength to 4/5 [facility] Goals Days: 20 Mobility: improve bed mobility to set up A to independent to facilitate EOB tasks Transfers: improve functional transfers to set up A to independent to facilitate OOB Gait: improve gait using RW for 200ft at set up A to mod I w/o LOB noted Balance: improve standing S/D to G/G- ROM/Strength: increase B LE ms strength to 4+/5 - PATIENT GOALS Patient/Family Goals: return to PLOF Goals Discussed with Patient/Family: Yes Rehabilitation Potential: good Justification for Potential: higher PLOF, able to participate, good CG support - PLAN Suggested Treatment Plan: Bed Mobility Training, Therapeutic Activity, Gait Training, Neuro Re-education, Therapeutic Ex with HEP, Patient Education, Family Education - FREQUENCY AND DURATION PT: 6x/wk x hosp stay Expected Continuation of Care at Discharge: Determined on Progress
[2019-06-09] MEDS: FLAVOXATE 100 MG PO SCH ×2 (14:16→22:12)
[2019-06-09] MEDS: CATAPRES-TTS-2 TD SCH (15:26)
[2019-06-09] MEDS ORDERED: CATAPRES-TTS-2 TD ONE (15:27)
--- NOTE | 2019-06-09 15:52 | PT/OTEVAL ---
PT/OT OBJECTIVES - HISTORY Prescription: OT Consult Diagnosis: C/P CVA Precautions: Falls PMH: Angina, [place], CAD, HTN, dyslipidemia, diabetes, anxiety, COPD, GERD, CHF and history of bladder cancer (1999) Prior Level of Function: Independent Other: Per daughter's report, pt lives with daughter and with PLOF of independent in all areas of ADLs, functional transfers and functional mobility on prior level. - COGNITION Mental Status: Alert, Oriented, Name, Date, Place, Purpose, Decreased Safety Awarenes Communication Status: Verbal Ability to Follow Directions: 2 Step - PAIN Abdomen Pain Scale: No Pain Comments: [facility] nurse was notified. - ADL'S Feeding: Independent Grooming: Supervision Upper Body ADL: Moderate Lower Body ADL: Moderate Toileting: Moderate - BALANCE Static Sitting: Good Standing: Fair Dynamic Sitting: Good Standing: Fair - NEUROMOTOR/SENSATION Emery. Lower Ext Sensation: WFL Coordination: WFL Emery. Upper Ext Sensation: WFL Coordination: Impaired Proprioception: WFL - HAND DOMINANCE Extremity Function: Hand Dominance: Right - ROM Left UE ROM: WFL Muscle Tone: WFL Right UE ROM: Impaired Muscle Tone: WFL - STRENGTH Bilateral LE Strength Number: 3 Other comment: 3-/5 grossly graded Left UE Strength Number: 3 Other comment: 3/5 grossly graded Right UE Strength Number: 3 Other comment: 3-/5 grossly graded PT/OT ASSESSMENT - OT Problem List: Decreased Mobility ADL's, Decreased Safety Aware, Decreased Dressing, Decreased Bathing, Decreased Grooming, Decreased UE Strength - PT GOALS Short Term Goals Days: 10 Mobility: improve bed mobility to supv/touch A to facilitate EOB tasks Transfers: improve sit <->stand w or w/o AD at supv/touch A to set up A w/o LOB noted Gait: improve gait using RW for 150ft at supv/touch A w/o LOB noted Balance: improve standing S/D to F+/F+ ROM/Strength: increase B LE ms strength to 4/5 [facility] Goals Days: 20 Mobility: improve bed mobility to set up A to independent to facilitate EOB tasks Transfers: improve functional transfers to set up A to independent to facilitate OOB Gait: improve gait using RW for 200ft at set up A to mod I w/o LOB noted Balance: improve standing S/D to G/G- ROM/Strength: increase B LE ms strength to 4+/5 - OT GOALS Short Term Goals Days: 10 Mobility for ADL's: Pt will improve on functional and toilet t/f to partial A. Safety Awareness: Pt will demonstrate G safety awareness through therapy teaching and ed. Dressing: Pt will imp on total body dressing using compensatory tech and AD w/ part A Bathing: Pt will perform bed bath with partial A with the use of AD PRN Upper Ext. Strength/Use: Pt will improve on BUE strength to 4-/5 for increasing (I) with self-cares. Other: Pt will score at least 50 on MBI to ind (I) with ADLs. Av Specialist Goals Days: 20 Mobility for ADL's: Pt will improve on functional and toilet t/f to supervision. Safety Awareness: Pt will demonstrate G safety awareness and be incorporated on ADLs. Dressing: Pt will imrpove on total body dressing with supervision. Bathing: Pt will perform bathing task with supervision. Upper Ext. Strength/Use: Pt will improve on BUE strength to 4/5 for increasing (I) with self-cares. Other: Pt will score 64 or more on Modified Radha Index to signify (I) with ADLs - PATIENT GOALS Patient/Family Goals: "To get back with her usual" -per daughter's report Goals Discussed with Patient/Family: Yes (Daughter was present during the time of evaluation.) Rehabilitation Potential: Good Justification for Potential: Higher PLOF, G motivation to participate with s killed services. Weakness and Barriers: Pain - PLAN Suggested Treatment Plan: Therapeutic Activity, Self Care Training, Neuro Re-education, Therapeutic Ex with HEP, Patient Education, Family Education - FREQUENCY AND DURATION OT: 6x/wk x hospital stay Expected Continuation of Care at Discharge: Determined on Progress
[2019-06-09] MEDS ORDERED: SNACK - Diabetic Appropriate PO SCH (20:00)
[2019-06-09] MEDS: PULMICORT NEB TX 0.5 MG NEB SCH (21:13)
[2019-06-09] MEDS: XANAX PO SCH (21:39)
[2019-06-09] MEDS: LIPITOR TAB 20 MG PO SCH (21:39)
[2019-06-09] MEDS: SINEMET (PLAIN) 25/100 MG PO SCH (21:39)
[2019-06-09] MEDS: SNACK - Diabetic Appropriate PO SCH (21:39)
[2019-06-09] MEDS: LEVAQUIN PREMIX IV 250 MG 250 MG/50 ML BAG IV SCH (21:40)
[2019-06-10] MEDS: FLAVOXATE 100 MG PO SCH ×3 (06:31→21:05)
[2019-06-10] MEDS ORDERED: ASPIRIN EC 81 MG PO SCH (09:00)
[2019-06-10] MEDS ORDERED: ASPIRIN 81 MG CHEWTAB ONE (09:09)
[2019-06-10] MEDS: PULMICORT NEB TX 0.5 MG NEB SCH ×2 (09:23→20:30)
[2019-06-10] MEDS: PLAVIX PO SCH (10:53)
[2019-06-10] MEDS: SINEMET (PLAIN) 25/100 MG PO SCH ×2 (10:54→21:05)
--- NOTE | 2019-06-10 10:56 | DR.UPDATE ---
H&P Update History and Physical Update: History and Physical reviewed and patient examined. Changes noted: Yes with the following: WAS ADMITTED ON 06/03/19 DUE TO COMPLAINTS OF LEFT FACIAL DROOPING AND WEAKNESS. BRAIN MRI CONFIRMED A SUBACUTE INFARCT IN THE LEFT GOLDSMITH RADIATA AND A SMALL PUNCTATE FOCUS OF RESTRICTED ISCHEMIA IN THE RIGHT GOLDSMITH RADIATA COMPATIBLE WITH A SUBACUTE STROKE WELL. SHE HAD ALREADY BEEN ON ASPIRIN 81MG PO DAILY, PLAVIX 75MG PO DAILY, AND LIPITOR 20MG PO AT BEDTIME. WE FELT THAT PATIENT WOULD BENEFIT FROM AN EXTENDED STAY FOR PHYSICAL THERAPY AND REHABILITATION. PATIENT WAS CHANGED TO SWINGBED STATUS TODAY. WE WILL CONTINUE WITH PHYSICAL AND OCCUPATIONAL THERAPY MULTIPLE TIMES DAILY. WE WILL ALSO CONTINUE WITH BLOOD THINNERS, STATINS, AND ANTI-HYPERTENSIVES. WE WILL CONTINUE TO MONITOR HER PROGRESS AND LABS AND MAKE ADJUSTMENTS NEEDED. H&P Reviewed: Yes Patient was examined?: Yes
[2019-06-10] MEDS: HumuLIN R SC PRN ×2 (12:11→21:30)
[2019-06-10] MEDS: SNACK - Diabetic Appropriate PO SCH (20:23)
[2019-06-10] MEDS: LEVAQUIN PREMIX IV 250 MG 250 MG/50 ML BAG IV SCH (21:04)
[2019-06-10] MEDS: LIPITOR TAB 20 MG PO SCH (21:04)
[2019-06-10] MEDS: XANAX PO SCH (21:05)
[2019-06-11] MEDS: FLAVOXATE 100 MG PO SCH ×3 (06:14→21:46)
[2019-06-11] MEDS ORDERED: ASPIRIN 81 MG CHEWTAB ONE (08:12)
[2019-06-11] MEDS: PULMICORT NEB TX 0.5 MG NEB SCH ×2 (08:50→22:00)
[2019-06-11] MEDS: SINEMET (PLAIN) 25/100 MG PO SCH ×2 (09:21→20:59)
[2019-06-11] MEDS: PLAVIX PO SCH (09:23)
[2019-06-11] MEDS: HumuLIN R SC PRN ×3 (12:30→20:58)
[2019-06-11] MEDS: XANAX PO SCH (20:47)
[2019-06-11] MEDS: LIPITOR TAB 20 MG PO SCH (20:47)
[2019-06-11] MEDS: LEVAQUIN PREMIX IV 250 MG 250 MG/50 ML BAG IV SCH (20:51)
[2019-06-11] MEDS: SNACK - Diabetic Appropriate PO SCH (20:51)
[2019-06-12] MEDS: FLAVOXATE 100 MG PO SCH ×3 (05:32→21:18)
[2019-06-12 06:01] LABS: BASOPHILS # (AUTO) 0.1 X10^3/uL (0.0-0.1); BASOPHILS % (AUTO) 0.8 % (0.2-1.0); EOSINOPHILS # (AUTO) 0.2 x10^3/uL (0.0-0.2); EOSINOPHILS % (AUTO) 2.4 % (0.9-2.9); HEMATOCRIT 36.3 % (36.0-47.0); HEMOGLOBIN 12.6 g/dL (12.0-16.0); LYMPHOCYTES # (AUTO) 2.5 X10^3/uL (1.3-2.9); LYMPHOCYTES % (AUTO) 30.4 % (21.0-51.0); MEAN CORPUSCULAR HGB CONC 34.5 g/dL (33.0-35.0); MEAN CORPUSCULAR VOLUME 92.6 fL (80.0-100.0); MONOCYTES # (AUTO) 0.9 x10^3/uL (0.3-0.8); MONOCYTES % (AUTO) 10.7 % (0.0-13.0); NEUTROPHILS # (AUTO) 4.6 x10^3/uL (2.2-4.8); NEUTROPHILS % (AUTO) 55.7 % (42.0-75.0); PLATELET COUNT 273 X10^3/uL (150.0-450.0); RED BLOOD COUNT 3.92 X10^6/uL (3.5-5.4); RED CELL DISTRIBUTION WIDTH 12.5 % (11.6-16.5); WHITE BLOOD COUNT 8.3 X10^3/uL (3.6-10.0)
[2019-06-12 06:37] LABS: ALANINE AMINOTRANSFERASE < 6 Units/L (12-78); ALBUMIN 2.2 g/dL (3.4-5.0); ALKALINE PHOSPHATASE 80 Units/L (46-116); ASPARTATE AMINO TRANSFERASE 22 Units/L (15-37); BLOOD UREA NITROGEN 7 mg/dL (7-18); CALCIUM 8.6 mg/dL (8.5-10.1); CARBON DIOXIDE 29.1 mmol/L (21-32); CHLORIDE 105 mmol/L (98-107); CREATININE 0.81 mg/dL (0.55-1.02); SODIUM 141 mmol/L (136-145); TOTAL PROTEIN 6.2 g/dL (6.4-8.2); eGFR NON BLACK RACES > 60 (>60)
--- NOTE | 2019-06-12 06:53 | RAD ---
HISTORYChest pain and shortness of breathSTUDYSingle-view [id number] trachea is midline. The cardiac silhouette is unremarkable . The lungs are clear without focal infiltrate or effusion. The bony thorax is unremarkable.IMPRESSIONNo acute cardiopulmonary disease.Electronically signed by: LISSETT LOVE (Jun 12, 2019 06:51:45)
[2019-06-12] MEDS ORDERED: POTASSIUM CHL 40 MEQ/NS 0.45% 500 ML IV PRN (07:12)
[2019-06-12] MEDS ORDERED: K-DUR TAB 20 MEQ PO PRN (07:12)
[2019-06-12] MEDS ORDERED: KLOR-CON PO PRN (07:12)
[2019-06-12] MEDS ORDERED: K-RIDER 10 MEQ/NS 100 ML 10 MEQ/100 ML BAG IV PRN (07:12)
[2019-06-12] MEDS ORDERED: POTASSIUM CHLORIDE LIQ 20 MEQ UDC PO PRN (07:12)
[2019-06-12] MEDS ORDERED: POTASSIUM CHL 60 MEQ/NS 0.45% 500 ML IV PRN (07:12)
[2019-06-12] MEDS ORDERED: MICRO K EXTEN CAP 10 MEQ PO PRN (07:12)
[2019-06-12] MEDS: PULMICORT NEB TX 0.5 MG NEB SCH ×2 (08:40→20:04)
[2019-06-12] MEDS: MAGNESIUM SULFATE 1 GRAM/100 mL PREMIX 1 GM/100 ML BAG IV PRN ×2 (09:13→10:34)
[2019-06-12] MEDS: PLAVIX PO SCH (09:13)
[2019-06-12] MEDS: ASPIRIN 81 MG CHEWTAB PO SCH (09:13)
[2019-06-12] MEDS: SINEMET (PLAIN) 25/100 MG PO SCH ×2 (09:13→20:55)
[2019-06-12] MEDS: HumuLIN R SC PRN ×2 (12:42→17:18)
[2019-06-12] MEDS: COLACE CAP 100 MG PO SCH (20:55)
[2019-06-12] MEDS: LIPITOR TAB 20 MG PO SCH (20:55)
[2019-06-12] MEDS: XANAX PO SCH (20:55)
[2019-06-12] MEDS: LEVAQUIN PREMIX IV 250 MG 250 MG/50 ML BAG IV SCH (20:56)
[2019-06-12] MEDS: SNACK - Diabetic Appropriate PO SCH (21:17)
[2019-06-13] MEDS ORDERED: NS 250 ML IV 250 ML IV ONE (04:50)
[2019-06-13] MEDS: FLAVOXATE 100 MG PO SCH ×3 (05:35→21:37)
[2019-06-13] MEDS: MILK OF MAGNESIA PO SCH (08:56)
[2019-06-13] MEDS: ASPIRIN 81 MG CHEWTAB PO SCH (08:56)
[2019-06-13] MEDS: SINEMET (PLAIN) 25/100 MG PO SCH ×2 (08:57→20:59)
[2019-06-13] MEDS: PLAVIX PO SCH (08:57)
[2019-06-13] MEDS: PULMICORT NEB TX 0.5 MG NEB SCH ×2 (09:01→20:45)
--- NOTE | 2019-06-13 10:25 | SP.EVAL ---
SPEECH EVALUATION - History Prescription: Bedside evaluation of swallow, cognitive-linguistic function Diagnosis: CVA Precautions: Safety awareness, aspiration Prior Level of Function: Independent - Objective Prior level of function: Independent Driving Status: Patient Does not Drive - Cognition Mental Status: Alert, Oriented, Name, Place, Confused, Decreased Safety Awarenes Ability to Follow Directions: 2 Step Memory Loss: Short term memory loss, MCFP memory loss - Communication Status Communication Status: Garbled Automatized Sequences: Impaired Sentence Completion: Impaired Produces Sentences: Impaired - Oral/Motor Examination Labial: At Rest, Open, Close, Retract, Pucker Lingual: Lateralize, Elevate, Protrude, Retract Teeth: Natural Motor/Speech: Dysarthia Swallowing: Cough With Eating, Cough With Drinking, Extra Effort to Swallow, Extra Effort to Chew Diet Tolerated: Fair - Speech Goals Short Term Goals Decreased Swallow: Oral: Pt will tolerate NMES to Rt buccal area Decreased Swallow: Pharyngeal: Pt will tolerate less restrictive diet with no s/s of pulmonary compromise Decreased Expressive Language: Pt will demonstate normal speech pattern with in dysarthria Others: Pt will give accurate orientation details Traffic Technician Goals Decreased Swallow: Oral: Pt will demonstrate bilaterally facial symmetry Decreased Swallow: Pharyngeal: Pt will tolerate regular diet as PLOF with no overt s/s of aspiration Decreased Expressive Language: Pt will make wants and needs known within functional environment Others: Pt will be oriented to person, place, time, and situation - Assessment Goals discussed with family?: Yes Patient/Family Goals: To return to PLOF with adequate swallow function and cognitive-liquistic function - Rehabilitation Rehabilitation Potential: Good Justification for potential: Good family support. Willlingness to participate in skilled ST sessions - Suggested Treatment Plan Suggested Treatment: Speech/Hearing Therapy, Swallow/Oral Function Th., Patient/Family Education
[2019-06-13] MEDS: HumuLIN R SC PRN (12:50)
[2019-06-13] MEDS: PERCOCET TAB 5/325 MG PO PRN (19:41)
[2019-06-13] MEDS: XANAX PO SCH (20:58)
[2019-06-13] MEDS: SNACK - Diabetic Appropriate PO SCH (20:58)
[2019-06-13] MEDS: COLACE CAP 100 MG PO SCH (20:59)
[2019-06-13] MEDS: LEVAQUIN PREMIX IV 250 MG 250 MG/50 ML BAG IV SCH (20:59)
[2019-06-13] MEDS: LIPITOR TAB 20 MG PO SCH (20:59)
[2019-06-14] MEDS: FLAVOXATE 100 MG PO SCH ×3 (05:32→21:36)
[2019-06-14] MEDS: ASPIRIN 81 MG CHEWTAB PO SCH (09:22)
[2019-06-14] MEDS: PLAVIX PO SCH (09:23)
[2019-06-14] MEDS: SINEMET (PLAIN) 25/100 MG PO SCH ×2 (09:23→21:35)
[2019-06-14] MEDS: MILK OF MAGNESIA PO SCH (09:23)
[2019-06-14] MEDS: PULMICORT NEB TX 0.5 MG NEB SCH ×2 (09:41→20:40)
[2019-06-14] MEDS: HumuLIN R SC PRN ×2 (12:42→17:22)
[2019-06-14] MEDS: PERCOCET TAB 5/325 MG PO PRN (16:22)
[2019-06-14] MEDS: SNACK - Diabetic Appropriate PO SCH (21:34)
[2019-06-14] MEDS: COLACE CAP 100 MG PO SCH (21:34)
[2019-06-14] MEDS: LIPITOR TAB 20 MG PO SCH (21:35)
[2019-06-14] MEDS: LEVAQUIN PREMIX IV 250 MG 250 MG/50 ML BAG IV SCH ×2 (21:35→23:33)
[2019-06-14] MEDS: XANAX PO SCH (21:36)
[2019-06-15] MEDS: FLAVOXATE 100 MG PO SCH ×3 (05:39→21:16)
[2019-06-15 05:50] LABS: BASOPHILS # (AUTO) 0.1 X10^3/uL (0.0-0.1); BASOPHILS % (AUTO) 0.6 % (0.2-1.0); EOSINOPHILS # (AUTO) 0.2 x10^3/uL (0.0-0.2); EOSINOPHILS % (AUTO) 2.4 % (0.9-2.9); HEMATOCRIT 40.7 % (36.0-47.0); HEMOGLOBIN 13.9 g/dL (12.0-16.0); LYMPHOCYTES # (AUTO) 2.8 X10^3/uL (1.3-2.9); LYMPHOCYTES % (AUTO) 33.7 % (21.0-51.0); MEAN CORPUSCULAR HEMOGLOBIN 32.2 pg (27.0-34.0); MEAN CORPUSCULAR HGB CONC 34.1 g/dL (33.0-35.0); MEAN CORPUSCULAR VOLUME 94.3 fL (80.0-100.0); MEAN PLATELET VOLUME 8.4 fL (7.4-11.0); MONOCYTES # (AUTO) 0.5 x10^3/uL (0.3-0.8); MONOCYTES % (AUTO) 6.5 % (0.0-13.0); NEUTROPHILS # (AUTO) 4.7 x10^3/uL (2.2-4.8); NEUTROPHILS % (AUTO) 56.8 % (42.0-75.0); PLATELET COUNT 324 X10^3/uL (150.0-450.0); RED BLOOD COUNT 4.31 X10^6/uL (3.5-5.4); RED CELL DISTRIBUTION WIDTH 12.4 % (11.6-16.5); WHITE BLOOD COUNT 8.2 X10^3/uL (3.6-10.0)
[2019-06-15 05:57] LABS: ALANINE AMINOTRANSFERASE 8 Units/L (12-78); ALBUMIN 2.6 g/dL (3.4-5.0); ALKALINE PHOSPHATASE 95 Units/L (46-116); ASPARTATE AMINO TRANSFERASE 24 Units/L (15-37); BLOOD UREA NITROGEN 11 mg/dL (7-18); CALCIUM 8.9 mg/dL (8.5-10.1); CARBON DIOXIDE 27.1 mmol/L (21-32); CHLORIDE 102 mmol/L (98-107); COR NA(FOR HYPERGLY) 139 mmol/L (136-145); CREATININE 0.94 mg/dL (0.55-1.02); SODIUM 138 mmol/L (136-145); TOTAL PROTEIN 7.1 g/dL (6.4-8.2); eGFR NON BLACK RACES > 60 (>60)
[2019-06-15] MEDS: PULMICORT NEB TX 0.5 MG NEB SCH ×2 (09:08→20:30)
[2019-06-15] MEDS: MILK OF MAGNESIA PO SCH (09:49)
[2019-06-15] MEDS: ASPIRIN 81 MG CHEWTAB PO SCH (09:49)
[2019-06-15] MEDS: PLAVIX PO SCH (09:49)
[2019-06-15] MEDS: SINEMET (PLAIN) 25/100 MG PO SCH ×2 (09:50→20:26)
[2019-06-15] MEDS: MEGACE PO SCH ×2 (10:40→20:26)
[2019-06-15] MEDS: PERIACTIN TAB 4 MG PO SCH ×2 (10:40→16:41)
[2019-06-15] MEDS: HumuLIN R SC PRN (16:42)
[2019-06-15] MEDS: SNACK - Diabetic Appropriate PO SCH (20:25)
[2019-06-15] MEDS: COLACE CAP 100 MG PO SCH (20:25)
[2019-06-15] MEDS: XANAX PO SCH (20:26)
[2019-06-15] MEDS: LIPITOR TAB 20 MG PO SCH (20:26)
[2019-06-15] MEDS ORDERED: LEVAQUIN TAB 250 MG PO SCH (21:00)
[2019-06-16] MEDS: FLAVOXATE 100 MG PO SCH (05:27)
[2019-06-16] MEDS: PERIACTIN TAB 4 MG PO SCH (05:34)
[2019-06-16] MEDS: SINEMET (PLAIN) 25/100 MG PO SCH (08:58)
[2019-06-16] MEDS: ASPIRIN 81 MG CHEWTAB PO SCH (08:58)
[2019-06-16] MEDS: PLAVIX PO SCH (08:59)
[2019-06-16] MEDS: MEGACE PO SCH (08:59)
[2019-06-16] MEDS: MILK OF MAGNESIA PO SCH (08:59)
[2019-06-16] MEDS: CATAPRES-TTS-2 TD SCH (09:01)
[2019-06-16] MEDS: PULMICORT NEB TX 0.5 MG NEB SCH (09:06)
[2019-06-16 09:07] VITALS: BP 150/64
--- NOTE | 2019-06-16 11:17 | PCM.PROG ---
Progress Note - Progress Note for Day of Date of Exam: 06/11/29 - Subjective Subjective: IS SWINGBED STATUS FOR PHYSICAL THERAPY AND REHAB FOLLOWING AN ACUTE CVA. TODAY, SHE IS ALERT AND ORIENTED, LYING IN BED ON MORNING ROUNDS. SHE REPORTS WEAKNESS AND SHORTNESS OF BREATH THIS MORNING. SHE DOES HAVE A HISTORY OF COPD AND CHF. FAMILY REPORTS THAT PATIENT HAS HAD A DEC REASED APPETITE AND CONTINUES WITH DIFFICULTY SWALLOWING WHEN SHE DOES EAT. ON EXAMINATION, HEART IS REGULAR IN RATE AND RHYTHM. BILATERAL LUNGS ARE NOTED WITH DIMINISHED LUNG SOUNDS THROUGHOUT. ABDOMEN IS ROUND, SOFT, AND NON-TENDER WITH NORMAL BOWEL SOUNDS NOTED IN ALL QUADRANTS. STAFF REPORTS THAT SHE REQUIRES ASSISTANCE FOR AMBULATION. HER VITALS THIS MORNING ARE: 98.6-71-18-96%RA-139/71. LABS WERE OBTAINED. ABNORMAL LAB VALUES INCLUDE THE FOLLOWING: POTASSIUM 3.2, MAGNESIUM 1.6, TOTAL PROTEIN 6.2, ALBUMIN 2.2. A CATAPRES 0.2MG/HR TD PATCH WEEKLY, LEVAQUIN 250MG PO HS, PLAVIX 75MG PO DAILY, ASPIRIN 81MG PO DAILY, LIPITOR 20MG PO HS, NEB TX, THE POTASSIUM AND MAGNESIUM PROTOCOLS, HUMULIN R SLIDING SCALE, AND HOME MEDICATIONS WERE RESUMED. DUE TO CHF AND COPD, PATIENT REQUIRES THE HEAD OF THE BED TO ELEVATED 30-45% TO MAINTAIN OXYGEN SATURATIONS ABOVE 92%. UPON DISCHARGE, WE WILL ORDER A HOSPITAL BED FOR HER TO HAVE AT HOME. OTHERWISE, WE WILL CONTINUE WITH CURRENT PLAN OF CARE AND PHYSICAL THERAPY TODAY. SPEECH THERAPY WILL CONTINUE TO WORK WITH PATIENT WELL. - Past Medical Family Social History Past Med/Fam/Surg Hx: No changes since H&P Allergies: Allergies doxycycline Allergy (Intermediate, Verified 06/18/17 14:27) erythromycin base Allergy (Intermediate, Verified 06/18/17 14:27) tramadol Allergy (Intermediate, Verified 06/18/17 14:27) trimethobenzamide [From Tigan] Allergy (Intermediate, Verified 06/18/17 14:27) amoxicillin Allergy (Verified 06/18/17 14:27) cefuroxime [From Ceftin] Allergy (Verified 06/18/17 14:27) clavulanic acid Allergy (Verified 06/18/17 14:27) loratadine [From Claritin] Allergy (Verified 06/18/17 14:27) Penicillins Allergy (Verified 06/18/17 14:27) promethazine Allergy (Verified 06/18/17 14:27) - Review of Systems ROS: No change since H&P - Vital Signs and I&O's Vital Signs: Temperature 98.4 F Pulse Rate [Left Brachial] 66 Pulse Rate 69 Respiratory Rate 20 Blood Pressure [Right Arm] 166/71 Blood Pressure [Left Arm] 150/64 O2 Sat by Pulse Oximetry 97 Intake and Output: Intake & Output 06/13/19 06/14/19 06/15/19 06/16/19 11:59 11:59 11:59 11:59 Intake Total 840 / 840 990 / 990 720 / 720 400 / 400 Balance 840 / 840 990 / 990 720 / 720 400 / 400 - Physical Exam Oriented: Normal Eyes: Normal Ear: Normal Nose: Normal Throat: Normal Respiratory: Generalized, Diminished Cardiovascular: Normal : Normal Auscultation: Bowel Sounds: Normal Palpation: Normal Tenderness: Normal Skin: Normal Musculoskeletal: Instability Psychiatric: Normal Mood Description: Calm Speech Pattern: Clear, Appropriate - Laboratory and Diagnostics Result Diagrams: 06/15/19 05:35 06/15/19 05:35 Labs: Laboratory WBC 8.2 X10^3/uL (3.6-10.0) 06/15/19 05:35 RBC 4.31 X10^6/uL (3.5-5.4) 06/15/19 05:35 Hgb 13.9 g/dL (12.0-16.0) 06/15/19 05:35 Hct 40.7 % (36.0-47.0) 06/15/19 05:35 MCV 94.3 fL (80.0-100.0) 06/15/19 05:35 MCH 32.2 pg (27.0-34.0) 06/15/19 05:35 MCHC 34.1 g/dL (33.0-35.0) 06/15/19 05:35 RDW 12.4 % (11.6-16.5) 06/15/19 05:35 Plt Count 324 X10^3/uL (150.0-450.0) 06/15/19 05:35 MPV 8.4 fL (7.4-11.0) 06/15/19 05:35 Neut % (Auto) 56.8 % (42.0-75.0) 06/15/19 05:35 Lymph % (Auto) 33.7 % (21.0-51.0) 06/15/19 05:35 [place] % (Auto) 6.5 % (0.0-13.0) 06/15/19 05:35 Eos % (Auto) 2.4 % (0.9-2.9) 06/15/19 05:35 Baso % (Auto) 0.6 % (0.2-1.0) 06/15/19 05:35 Neut # (Auto) 4.7 x10^3/uL (2.2-4.8) 06/15/19 05:35 Lymph # (Auto) 2.8 X10^3/uL (1.3-2.9) 06/15/19 05:35 [place] # (Auto) 0.5 x10^3/uL (0.3-0.8) 06/15/19 05:35 Eos # (Auto) 0.2 x10^3/uL (0.0-0.2) 06/15/19 05:35 Baso # (Auto) 0.1 X10^3/uL (0.0-0.1) 06/15/19 05:35 Absolute Nucleated RBC 0.0 /100WBC 06/15/19 05:35 Sodium 138 mmol/L (136-145) 06/15/19 05:35 Corrected Sodium 139 mmol/L (136-145) 06/15/19 05:35 Potassium 4.8 mmol/L (3.5-5.1) 06/15/19 05:35 Chloride 102 mmol/L (98-107) 06/15/19 05:35 Carbon Dioxide 27.1 mmol/L (21-32) 06/15/19 05:35 BUN 11 mg/dL (7-18) 06/15/19 05:35 Creatinine 0.94 mg/dL (0.55-1.02) 06/15/19 05:35 Est GFR (MDRD) Af Amer > 60 (>60) 06/15/19 05:35 Est GFR (MDRD) Non-Af > 60 (>60) 06/15/19 05:35 Glucose 132 mg/dL (65-99) H 06/15/19 05:35 POC Glucose (mg/dL) 209 mg/dL (65-99) H 06/16/19 10:48 Calcium 8.9 mg/dL (8.5-10.1) 06/15/19 05:35 Corrected Calcium 10.0 mg/dL (8.5-10.1) 06/15/19 05:35 Magnesium 2.1 mg/dL (1.7-2.9) 06/13/19 05:06 Total Bilirubin 0.40 mg/dL (0.2-1.0) 06/15/19 05:35 AST 24 Units/L (15-37) 06/15/19 05:35 ALT 8 Units/L (12-78) L 06/15/19 05:35 Alkaline Phosphatase 95 Units/L (46-116) 06/15/19 05:35 B-Natriuretic Peptide 74.0 pg/mL (0-79) 06/12/19 04:46 Total Protein 7.1 g/dL (6.4-8.2) 06/15/19 05:35 Albumin 2.6 g/dL (3.4-5.0) L 06/15/19 05:35 Globulin 4.5 g/dL (2.5-4.5) 06/15/19 05:35 Albumin/Globulin Ratio 0.6 Ratio (1.1-2.1) L 06/15/19 05:35 - Plan (1) Acute CVA (cerebrovascular accident) Status: Acute Plan: SWINGBED, PHYSICAL THERAPY, CATAPRES 0.2MG/HR TD PATCH WEEKLY, LEVAQUIN 250MG PO HS, PLAVIX 75MG PO DAILY, ASPIRIN 81MG PO DAILY, LIPITOR 20MG PO HS, NEB TX, THE POTASSIUM AND MAGNESIUM PROTOCOLS, HUMULIN R SLIDING SCALE, AND HOME MEDICATIONS WERE RESUMED. (2) COPD (chronic obstructive pulmonary disease) Status: Chronic Qualifiers: COPD type: unspecified COPD Qualified Code(s): J44.9 - Chronic obstructive pulmonary disease, unspecified (3) CHF (congestive heart failure) Status: Chronic Qualifiers: Heart failure type: unspecified Heart failure chronicity: acute on chronic Qualified Code(s): I50.9 - Heart failure, unspecified (4) Diabetes mellitus, type 2 Status: Chronic Qualifiers: Diabetes mellitus fpc insulin use: with fpc use Diabetes mellitus complication status: with other specified complication Qualified Code(s): E11.69 - Type 2 diabetes mellitus with other specified complication; Z79.4 - USP (current) use of insulin (5) GERD (gastroesophageal reflux disease) Status: Chronic Qualifiers: Esophagitis presence: esophagitis presence not specified Qualified Code(s): K21.9 - Gastro-esophageal reflux disease without esophagitis (6) Hyperlipidemia Status: Chronic Qualifiers: Hyperlipidemia type: mixed hyperlipidemia (7) Hypertension Status: Chronic Qualifiers: Hypertension type: essential hypertension Qualified Code(s): I10 - Essential (primary) hypertension (8) Hx of CABG Status: Chronic
== END 2019-06-16 12:44 | disposition home or self-care (01) | DRG 66 ==
LOC: MED/SURG 11:20
PROVIDERS: ADMIT Internal Medicine; ATTEND Internal Medicine
DX: R53.1 Weakness; E78.2 Mixed hyperlipidemia; J44.9 Chronic obstructive pulmonary disease, unspecified; I63.89 Other cerebral infarction; Z79.01 Long term (current) use of anticoagulants; R47.1 Dysarthria and anarthria; I11.0 Hypertensive heart disease with heart failure; I25.10 Atherosclerotic heart disease of native coronary artery without angina pectoris; E11.65 Type 2 diabetes mellitus with hyperglycemia; I50.9 Heart failure, unspecified; Z51.89 Encounter for other specified aftercare; K21.9 Gastro-esophageal reflux disease without esophagitis; Z79.4 Long term (current) use of insulin